=== PATIENT | female | born 1985 | race Caucasian/White ===

== ENCOUNTER 2017-12-10 11:53 | Outpatient (CLI) | payer SELFPAY ==
[2017-12-10 13:36] VITALS: BP 116/74; PULSE 96; RESP 16; TEMP 96.6
--- NOTE | 2017-12-31 11:41 | P.MSEPDOC ---
Presenting Problems - Arrival Data Date of Arrival on Unit: 12/10/17 Time of Arrival on Unit: 12:40 Mode of Transport: Ambulatory - Complaint OB-Reason for Admission/Chief Complaint: Pain Medical History - Information : 1 Para: 0 Term: 0 : 0 Abortions: Spontaneous or Elective: 0 Number of Living Children: 0 - Gestational Age Gestational Age by CORNELIUS (wks/days): 26 Weeks and 6 Days Review of Systems - Review of Systems Constitutional: No problems Breast: No problems ENT: No problems Cardiovascular: No problems Respiratory: No problems Gastrointestinal: Diarrhea Genitourinary: No problems Musculoskeletal: No problems Neurological: No problems Skin: No problems Vital Signs - Temperature Temperature: 96.6 F Temperature Source: Tympanic - Pulse Right Brachial Pulse Rate: 96 Pulse Assessment Method: Automatic Cuff - Respirations Respiratory Rate: 16 Oxygen Delivery Method: Room Air - Blood Pressure Right Arm Blood Pressure: 116/74 Blood Pressure Mean: 88 Blood Pressure Source: Automatic Cuff Medical Screen Scoring (Pre) - Cervical Exam Dilation: Exam Deferred Effacement: Exam Deferred Membranes: Intact - Uterine Contractions Frequency: N/A Duration: N/A Intensity: N/A - Maternal Vital Signs Maternal Temperature: N/A Maternal Blood Pressure: N/A Signs of Preeclampsia: N/A Maternal Respirations: N/A - Pain Assessment Pain Location and Character: Abdomen Pain Scale Used: Numeric (1 - 10) Pain Intensity: 5 Pain Management Goal: 2 Pain Description: *Acute, Cramping Pain Radiation Location: na Pain Frequency: Intermittent Pain Duration: 14 Pain Duration Units: Days Pain Behavior: Vocalization Pain Aggravating Factors: Anxiety Non-Pharmacological Interventions: Position/Reposition - Maternal Trauma Maternal Trauma: N/A - Assessment Baseline FHR: 125 Heart Rate - NICHD Category: Category I (Normal) = 0 Position: N/A Station: N/A - Total Score Total Score (Pre): 0 - Level of Risk Level of Risk: Low (0-5) Physician Notification (Pre) - Physician Notified Physician Notified Date: 12/10/17 Physician Notified Time: 12:40 Physician/Practitioner Notifed:: Dr. Lujan Spoke With: Dr. Lujan New Order Received: Yes - Notification Comment Comment: d/c home Disposition - Disposition OB Disposition: Discharge to home Discharge Date: 12/10/17 Discharge Time: 12:50 I agree with the RN Medical Screening Exam: No Risk & Benefit of care provided described in d/c instruction: No Diagnosis: 29 WEEKS GESTATION OF
== END 2017-12-10 12:50 | disposition home or self-care (01) ==
LOC: FBPOP 11:53
PROVIDERS: ATTEND Obstetrics & Gynecology
DX: O26.893 Other specified pregnancy related conditions, third trimester (principal); R10.9 Unspecified abdominal pain; Z3A.29 29 weeks gestation of pregnancy
CPT/HCPCS: 99213

== ENCOUNTER 2018-03-12 02:45 | Outpatient (CLI) | payer BC ==
[2018-03-12 03:56] VITALS: RESP 16
[2018-03-12] MEDS ORDERED: CARBOPROST TROMETHAMINE 250 MCG/ML 1 ML AMP IM PRN (08:50)
[2018-03-12] MEDS ORDERED: TERBUTALINE 1 MG/ML VIAL SQ PRN (08:50)
[2018-03-12] MEDS ORDERED: METHYLERGONOVINE 0.2 MG/ML 1 ML AMP IM PRN (08:50)
[2018-03-12] MEDS ORDERED: OXYTOCIN 10 UNIT/ML 1 ML VIAL IM PRN (08:50)
[2018-03-12] MEDS ORDERED: LIDOCAINE 0.5% (PF) 5 MG/ML (50 ML SDV) SQ PRN (08:50)
[2018-03-12] MEDS ORDERED: BUTORPHANOL 1 MG/ML 1 ML VIAL IV PRN (08:55)
[2018-03-12] MEDS ORDERED: LACTATED RINGERS 1,000 ML IV SCH ×2 (09:00)
[2018-03-12] MEDS ORDERED: OXYTOCIN 20 UNITS/1000 ML NS 1,000 ML IV SCH (09:00)
[2018-03-12 09:16] VITALS: BP 138/89; PULSE 64; TEMP 96.3; BMI 29.1
--- NOTE | 2018-04-02 18:27 | P.MSEPDOC ---
Presenting Problems - Arrival Data Date of Arrival on Unit: 03/12/18 Time of Arrival on Unit: 02:45 Mode of Transport: Wheelchair - Complaint OB-Reason for Admission/Chief Complaint: Rule Out SROM Medical History - Information : 1 Para: 0 Term: 0 : 0 Abortions: Spontaneous or Elective: 0 Number of Living Children: 0 - Gestational Age Gestational Age by CORNELIUS (wks/days): 40 Weeks and 0 Days Review of Systems - Review of Systems Constitutional: No problems Breast: No problems ENT: No problems Cardiovascular: No problems Respiratory: No problems Gastrointestinal: No problems Genitourinary: No problems Musculoskeletal: No problems Neurological: No problems Skin: No problems Vital Signs - Temperature Temperature: 96.3 F Temperature Source: Oral - Pulse Right Brachial Pulse Rate: 64 Pulse Assessment Method: Automatic Cuff - Respirations Respiratory Rate: 16 Oxygen Delivery Method: Room Air O2 Sat by Pulse Oximetry: 97 - Blood Pressure Right Arm Blood Pressure: 138/89 Blood Pressure Mean: 105 Blood Pressure Source: Automatic Cuff Medical Screen Scoring (Pre) - Cervical Exam Dilation: 1-3 cm = 1 Membranes: Intact - Uterine Contractions Frequency: > or = 36 weeks =2 Duration: N/A Intensity: N/A - Maternal Vital Signs Maternal Temperature: N/A Maternal Blood Pressure: N/A Signs of Preeclampsia: N/A Maternal Respirations: N/A - Pain Assessment Pain Location and Character: Lower, Back Pain Scale Used: Numeric (1 - 10) Pain Intensity: 3 Pain Description: *Acute, Cramping Pain Frequency: Intermittent Pain Duration Units: Minutes Pain Behavior: None Exhibited - Maternal Trauma Maternal Trauma: N/A - Assessment Baseline FHR: 125 Heart Rate - NICHD Category: Category I (Normal) = 0 NST: Reactive Position: N/A Station: N/A - Total Score Total Score (Pre): 3 - Level of Risk Level of Risk: Low (0-5) Physician Notification (Pre) - Physician Notified Physician Notified Date: 03/12/18 Physician Notified Time: 03:38 Physician/Practitioner Notifed:: Dr. Giles Spoke With: Dr. Giles New Order Received: Yes - Notification Comment Comment: Dr. Giles called and given report on pt in tr. Pt c/o. reactive nst. Two negative amnisures. Vs wnl. Orders recieved to d/c pt to home. Disposition - Disposition OB Disposition: Discharge to home Discharge Date: 03/12/18 Discharge Time: 03:50 I agree with the RN Medical Screening Exam: Yes Risk & Benefit of care provided described in d/c instruction: Yes Diagnosis: FALSE LABOR AT OR AFTER 37 COMPLETED WEEKS OF GESTATION
== END 2018-03-12 03:50 | disposition home or self-care (01) ==
LOC: FBPOP 02:45
PROVIDERS: ATTEND Obstetrics & Gynecology Obstetrics
DX: O47.1 False labor at or after 37 completed weeks of gestation (principal); Z3A.40 40 weeks gestation of pregnancy
CPT/HCPCS: 59025; 84112; 99213

== ENCOUNTER 2018-03-12 07:45 | Inpatient (IN) | payer BC ==
[2018-03-12] MEDS ORDERED: CARBOPROST TROMETHAMINE 250 MCG/ML 1 ML AMP IM PRN (08:54)
[2018-03-12] MEDS ORDERED: LIDOCAINE 0.5% (PF) 5 MG/ML (50 ML SDV) SQ PRN (08:55)
[2018-03-12] MEDS ORDERED: METHYLERGONOVINE 0.2 MG/ML 1 ML AMP IM PRN (08:55)
[2018-03-12] MEDS ORDERED: OXYTOCIN 10 UNIT/ML 1 ML VIAL IM PRN (08:55)
[2018-03-12] MEDS ORDERED: TERBUTALINE 1 MG/ML VIAL SQ PRN (08:56)
[2018-03-12] MEDS ORDERED: BUTORPHANOL 1 MG/ML 1 ML VIAL IV PRN (08:56)
[2018-03-12] MEDS ORDERED: LACTATED RINGERS 1,000 ML IV SCH ×3 (09:00→09:30)
[2018-03-12] MEDS ORDERED: OXYTOCIN 20 UNITS/1000 ML NS 1,000 ML IV SCH ×3 (09:00→12:00)
[2018-03-12] MEDS: LACTATED RINGERS 1,000 ML IV SCH ×2 (09:47→23:44)
[2018-03-12 09:56] LABS: Basophils % (A) 0 %; Eosinophils % (A) 0 %; HCT 33.9 % (34.0-46.0); Lymphocytes % (A) 6 %; MCH 27.7 pg (25.0-35.0); MCHC 32.4 g/dL (31.0-37.0); MCV 85.6 fL (80.0-100.0); Monocytes # (A) 0.5 k/uL (0-1.0); Monocytes % (A) 3 %; Neutrophils # (A) 14.2 k/uL (1.3-7.7); Neutrophils % (A) 90 %; Platelet Count 277 k/uL (150-450); RBC 3.97 m/uL (3.80-5.40); RDW 13.7 % (11.5-15.5); WBC 15.8 k/uL (3.8-10.6)
[2018-03-12] MEDS ORDERED: HYDROCORTISONE 2.5% RECTAL CREAM 30 GM TUBE RECTAL PRN (11:51)
[2018-03-12] MEDS ORDERED: ZOLPIDEM 5 MG TAB PO PRN (11:51)
[2018-03-12] MEDS ORDERED: SIMETHICONE 80 MG CHEWABLE PO PRN (11:51)
[2018-03-12] MEDS ORDERED: IBUPROFEN 600 MG TAB PO PRN (11:51)
[2018-03-12] MEDS ORDERED: diphenhydrAMINE 25 MG CAP PO PRN (11:51)
[2018-03-12] MEDS ORDERED: LANOLIN CREAM 5 GM TUBE TOPICAL PRN (11:51)
[2018-03-12] MEDS ORDERED: WITCH HAZEL 1 EACH MED..PAD TOPICAL PRN (11:51)
[2018-03-12] MEDS ORDERED: HYDROcodone/APAP 5-325MG 1 EACH TAB PO PRN (11:51)
[2018-03-12] MEDS ORDERED: BENZOCAINE/MENTHOL SPRAY 1 GM/SPRAY AEROSOL TOPICAL PRN (11:51)
[2018-03-12] MEDS ORDERED: diphenhydrAMINE 50 MG CAP PO PRN (11:51)
[2018-03-12] MEDS ORDERED: ACETAMINOPHEN TAB 325 MG TAB PO PRN (11:51)
[2018-03-12] MEDS ORDERED: diphenhydrAMINE 50 MG/ML 1 ML VIAL IVP PRN ×2 (11:51)
--- NOTE | 2018-03-12 11:55 | P.HPOB ---
History of Present Illness H&P Date: 03/12/18 Chief Complaint: IUP at 40-0/7 weeks, active labor This is a very pleasant 32-year-old 1 para 0 at 40-0/7 weeks with an estimated due date of 03 12. Patient presents with complaints of regular strong contractions. Patient was seen previously in the evening noted be 3 cm on presentation today she was 4 cm and completely thinned out. Patient denied loss of fluid, but did note vaginal bleeding with the contractions. Good movement is noted. Next On blood work showed a blood type of A+, rubella immune, hepatitis B surface antigen negative, HIV negative, GBS negative.. Patient has been receiving routine care with myself and is been followed closely for a circumvallate placenta. Review of Systems Constitutional: Reports fatigue, Denies chills, Denies fever Ears, nose, mouth and throat: Denies headache Cardiovascular: Reports leg edema Respiratory: Denies cough, Denies dyspnea Gastrointestinal: Denies constipation, Denies diarrhea, Denies nausea, Denies vomiting Genitourinary: Reports Past Medical History Past Medical History: No Reported History Additional Past Medical History / Comment(s): CURRENT: DIARRHEA History of Any Multi-Drug Resistant Organisms: None Reported Past Surgical History: No Surgical Hx Reported Past Anesthesia/Blood Transfusion Reactions: No Reported Reaction Additional Past Anesthesia/Blood Transfusion Reaction / Comment(s): HAS NEVER HAD ANESTHESIA Smoking Status: Never smoker Medications and Allergies Home Medications Medication Instructions Recorded Confirmed Type Pnv No.95/Ferrous Fum/Folic AC 1 each PO DAILY 12/10/17 03/12/18 History [ Multivitamin Tablet] Allergies Allergy/AdvReac Type Severity Reaction Status Date / Time No Known Allergies Allergy Verified 03/12/18 08:05 Exam Osteopathic Statement: *. No significant issues noted on an osteopathic structural exam other than those noted in the History and Physical/Consult. Vital Signs Temp 03/12/18 09:00 96.3 F L Intake and Output 03/11/18 03/12/18 03/12/18 22:59 06:59 14:59 Other: Weight 79.379 kg Targeted physical exam was preformed. In general patient is a well-developed well-nourished female, heart is noted to have regular rate and rhythm, lungs are clear to auscultation bilaterally, abdomen is noted to be gravid and appropriate for gestational age, heart tones were noted to be reactive with moderate variability, and patient was gordy every 5 minutes. - OBG Physical Exam Cervix: 5/100/-1 per rn on admission. Results Result Diagrams: 03/12/18 07:45 Abnormal Lab Results - Last 24 Hours (Table) 03/12/18 Range/Units 07:45 WBC 15.8 H (3.8-10.6) k/uL Hgb 11.0 L (11.4-16.0) gm/dL Hct 33.9 L (34.0-46.0) % Neutrophils # 14.2 H (1.3-7.7) k/uL Assessment and Plan (1) Term Current Visit: Yes Status: Acute Code(s): Z34.80 - ENCOUNTER FOR SUPRVSN OF NORMAL , UNSP TRIMESTER SNOMED Code(s): 18989010 (2) Circumvallate placenta Current Visit: Yes Status: Acute Code(s): O43.119 - CIRCUMVALLATE PLACENTA, UNSPECIFIED TRIMESTER SNOMED Code(s): 4704694 Plan: We'll admit to labor and delivery for expectant management, anticipate spontaneous vaginal delivery later this afternoon.
--- NOTE | 2018-03-12 11:57 | P.PROBDLV ---
Vaginal Delivery Note - . Vaginal Delivery Note: This is a very pleasant 32-year-old 1 para 0 at 40-0/7 weeks with an estimated date of 03 12. Patient presented to labor and delivery with complaints of regular strong contractions and cervical change. Patient was admitted to labor and delivery declines epidural at this time. Patient began pushing and had a normal spontaneous vaginal delivery of a viable male infant at 1132, occiput posterior presentation. was not weighed at the time of this note secondary to maternal bonding. Patient was noted have a circumvallate placenta. Placenta was delivered spontaneously intact with a three-vessel cord. Afterwards on inspection the patient's vaginal vault a second-degree midline laceration was noted this was repaired in the usual fashion with Vicryl Rapide. Hemostasis was appreciated once the laceration was repaired in section the patient's vaginal vault no further lacerations or bleeding was noted. Uterus was noted to be firm and below the umbilicus at this time. Estimated blood loss 300 mL, patient and infant tolerated delivery well and are resting comfortably.
[2018-03-12 16:39] VITALS: RESP 16
[2018-03-12] MEDS: SENNOSIDES-DOCUSATE SODIUM 1 EACH TAB PO SCH (19:41)
[2018-03-13] MEDS: SENNOSIDES-DOCUSATE SODIUM 1 EACH TAB PO SCH (08:06)
[2018-03-13 08:44] VITALS: BP 133/84; PULSE 94; TEMP 98
--- NOTE | 2018-03-13 12:57 | P.DS ---
Providers Date of admission: 03/12/18 08:24 Expected date of discharge: 03/13/18 Attending physician: Lyubov Giles Primary care physician: Stated None - Discharge Diagnosis(es) (1) Term Current Visit: Yes Status: Acute (2) Circumvallate placenta Current Visit: Yes Status: Acute (3) Status post vaginal delivery Current Visit: Yes Status: Acute Hospital Course: This is a very pleasant 32-year-old 1 para 0 that presented to labor and delivery on 03 12 in active labor. Patient states she was having contractions every 5 minutes painful in nature denied loss of fluid or vaginal bleeding at that time. Patient was admitted to labor and delivery she declined epidural progressed to complete and had a normal spontaneous vaginal delivery of a viable male infant in occiput posterior presentation at 1132, weight of 7 lbs. 11 oz., Apgars of 8 and 9 at one and 5 minutes respectively. Patient did sustain a second-degree midline vaginal laceration during delivery which was repaired in the usual fashion. Patient has done well . She is ambulating and voiding without difficulty. She is tolerating a regular diet without nausea or vomiting. She is bottle feeding. She denies any concerns and wishes to be discharged home on this day #1. Patient Condition at Discharge: Good Plan - Discharge Summary New Discharge Prescriptions: No Action Pnv No.95/Ferrous Fum/Folic AC [ Multivitamin Tablet] 1 each PO DAILY Discharge Medication List Pnv No.95/Ferrous Fum/Folic AC [ Multivitamin Tablet] 1 each PO DAILY [History] Follow up Appointment(s)/Referral(s): Lyubov Giles DO [Doctor of Osteopathic Medicine] - 1 Week Patient Instructions/Handouts: Vaginal Delivery (DC), Vaginal Delivery (GEN) Discharge Disposition: HOME SELF-CARE
== END 2018-03-13 15:40 | disposition home or self-care (01) | DRG 807 ==
LOC: FBPOP 07:45 → 4FBP 08:24
PROVIDERS: ADMIT Obstetrics & Gynecology Obstetrics; ATTEND Obstetrics & Gynecology Obstetrics
PROC: 10E0XZZ Delivery of Products of Conception, External Approach (ICD-10-PCS; principal; 2018-03-12)
PROC: 0KQM0ZZ Repair Perineum Muscle, Open Approach (ICD-10-PCS; principal; 2018-03-12)
PROC: 10907ZC Drainage of Amniotic Fluid, Therapeutic from Products of Conception, Via Natural or Artificial Opening (ICD-10-PCS; principal; 2018-03-12)
DX: O43.119 Circumvallate placenta, unspecified trimester (principal); Z37.0 Single live birth; Z3A.40 40 weeks gestation of pregnancy; O70.1 Second degree perineal laceration during delivery
CPT/HCPCS: 59025; 85025; 86850; 86900; 86901; 99213

== ENCOUNTER 2018-10-09 11:11 | Emergency (ER) | payer BC, OTHER ==
--- NOTE | 2018-10-09 12:34 | ED ---
GI Bleed HPI - General Chief complaint: GI Bleed Stated complaint: rectal bleeding Time Seen by Provider: 10/09/18 11:20 Source: patient, RN notes reviewed Mode of arrival: ambulatory Limitations: no limitations - History of Present Illness Initial comments: This is a 33-year-old female history of ulcerative colitis who has intermittent episodes of bleeding who is been evaluated by GI for this who was sent in by her doctor today for a blood transfusion. She's been having intermittent bleeding for quite a while she's had symptoms of lightheadedness dizziness had palpitations last week no overt chest pain no overt shortness of breath. She has been told she was deficient iron also. No other symptoms at this time she states she was here for transfusion only for any other treatment. She denies any bleeding today she states that her current episode of bleeding is normal for this condition for her. - Related Data Home Medications Medication Instructions Recorded Confirmed predniSONE 50 mg PO DAILY 10/09/18 10/09/18 sulfaSALAzine [Azulfidine] 1,000 mg PO TID 10/09/18 10/09/18 Allergies Allergy/AdvReac Type Severity Reaction Status Date / Time No Known Allergies Allergy Verified 10/09/18 11:34 Review of Systems ROS Statement: Those systems with pertinent positive or pertinent negative responses have been documented in the HPI. ROS Other: All systems not noted in ROS Statement are negative. Past Medical History Past Medical History: No Reported History Additional Past Medical History / Comment(s): CURRENT: DIARRHEA- [facility] History of Any Multi-Drug Resistant Organisms: None Reported Past Surgical History: No Surgical Hx Reported Past Anesthesia/Blood Transfusion Reactions: No Reported Reaction Additional Past Anesthesia/Blood Transfusion Reaction / Comment(s): HAS NEVER HAD ANESTHESIA Past Psychological History: No Psychological Hx Reported Smoking Status: Never smoker Past Alcohol Use History: Rare Past Drug Use History: None Reported General Exam - General Exam Comments Initial Comments: This is a well-developed well-nourished awake alert oriented 3 female Limitations: no limitations General appearance: alert, in no apparent distress Head exam: Present: atraumatic, normocephalic, normal inspection Eye exam: Present: normal appearance, PERRL, EOMI, other (Pale conjunctiva). Absent: scleral icterus, conjunctival injection, periorbital swelling ENT exam: Present: normal exam, mucous membranes moist Neck exam: Present: normal inspection. Absent: tenderness, meningismus, lymphadenopathy Respiratory exam: Present: normal lung sounds bilaterally. Absent: respiratory distress, wheezes, rales, rhonchi, stridor Cardiovascular Exam: Present: regular rate, normal rhythm, normal heart sounds. Absent: systolic murmur, diastolic murmur, rubs, gallop, clicks GI/Abdominal exam: Present: soft, normal bowel sounds. Absent: distended, tenderness, guarding, rebound, rigid, bruit Rectal exam: Present: deferred Extremities exam: Present: normal inspection, full ROM, normal capillary refill. Absent: tenderness, pedal edema, joint swelling, calf tenderness Back exam: Present: normal inspection Neurological exam: Present: alert, oriented X3, CN II-XII intact Psychiatric exam: Present: normal affect, normal mood Skin exam: Present: warm, dry, intact, pallor. Absent: rash Course Vital Signs 10/09/18 10/09/18 10/09/18 11:12 13:22 13:26 Temperature 98.7 F 99.4 F 98.8 F Pulse Rate 99 89 89 Respiratory 18 16 16 Rate Blood Pressure 162/82 115/74 112/80 O2 Sat by Pulse 98 98 Oximetry 10/09/18 10/09/18 10/09/18 13:36 14:06 14:48 Temperature 98.4 F 98 F 98.2 F Pulse Rate 85 85 82 Respiratory 18 18 18 Rate Blood Pressure 110/80 115/87 109/78 O2 Sat by Pulse 99 99 98 Oximetry 10/09/18 10/09/18 10/09/18 15:12 15:21 15:29 Temperature 98.6 F 98 F 98.6 F Pulse Rate 82 78 82 Respiratory 18 18 16 Rate Blood Pressure 113/75 115/87 116/78 O2 Sat by Pulse 98 98 Oximetry 10/09/18 10/09/18 10/09/18 15:31 15:32 16:01 Temperature 98 F 98.0 F 98.0 F Pulse Rate 78 75 84 Respiratory 18 16 18 Rate Blood Pressure 118/78 118/78 112/68 O2 Sat by Pulse 98 100 Oximetry - Reevaluation(s) Reevaluation #1: 10/09/18 14:40 I did reevaluate the patient patient is feeling somewhat better. The patient is currently getting her first unit of blood. I did discuss the magnesium level which is at the low end of normal. She will be getting [id number] supplements for this. Reevaluation #2: 10/09/18 14:40 Also of note the patient was offered admission for transfusion she does not want to be admitted this will be performed in the emergency department she'll be discharged afterwards. Medical Decision Making - Medical Decision Making Patient received 2 units of blood welling she department she was offered initially admission she did not want be admitted. Patient is feeling much improved after the second unit discharge will follow-up with her doctor if she has planned. - Lab Data Result diagrams: 10/09/18 11:40 10/09/18 11:40 Lab Results 10/09/18 10/09/18 10/09/18 Range/Units 11:40 11:40 11:40 WBC 11.9 H (3.8-10.6) k/uL RBC 3.09 L (3.80-5.40) m/uL Hgb 6.4 L* (11.4-16.0) gm/dL Hct 22.5 L (34.0-46.0) % MCV 72.9 L (80.0-100.0) fL MCH 20.7 L (25.0-35.0) pg MCHC 28.4 L (31.0-37.0) g/dL RDW 17.9 H (11.5-15.5) % Plt Count 755 H (150-450) k/uL Neutrophils % 64 % Lymphocytes % 18 % Monocytes % 7 % Eosinophils % 8 % Basophils % 1 % Neutrophils # 7.6 (1.3-7.7) k/uL Lymphocytes # 2.2 (1.0-4.8) k/uL Monocytes # 0.8 (0-1.0) k/uL Eosinophils # 0.9 H (0-0.7) k/uL Basophils # 0.1 (0-0.2) k/uL Hypochromasia Marked Anisocytosis Slight Microcytosis Moderate Sodium 139 (137-145) mmol/L Potassium 4.0 (3.5-5.1) mmol/L Chloride 107 (98-107) mmol/L Carbon Dioxide 25 (22-30) mmol/L Anion Gap 7 mmol/L BUN 13 (7-17) mg/dL Creatinine 0.51 L (0.52-1.04) mg/dL Est GFR (CKD-EPI)AfAm >90 (>60 ml/min/1.73 sqM) Est GFR (CKD-EPI)NonAf >90 (>60 ml/min/1.73 sqM) Glucose 78 (74-99) mg/dL Calcium 8.5 (8.4-10.2) mg/dL Magnesium 1.7 (1.6-2.3) mg/dL Total Bilirubin 0.2 (0.2-1.3) mg/dL AST 18 (14-36) U/L ALT 11 (9-52) U/L Alkaline Phosphatase 80 (38-126) U/L Total Creatine Kinase 28 L (30-135) U/L CK-MB (CK-2) <0.2 (0.0-2.4) ng/mL CK-MB (CK-2) Rel Index Troponin I <0.012 (0.000-0.034) ng/mL Total Protein 6.5 (6.3-8.2) g/dL Albumin 3.4 L (3.5-5.0) g/dL Triglycerides 112 (<150) mg/dL Cholesterol 133 (<200) mg/dL LDL Cholesterol, Calc 66 (0-99) mg/dL HDL Cholesterol 45 (40-60) mg/dL TSH 1.110 (0.465-4.680) mIU/L Blood Type Blood Type Recheck Antibody Screen Crossmatch Spec Expiration Date 10/09/18 Range/Units 11:40 WBC (3.8-10.6) k/uL RBC (3.80-5.40) m/uL Hgb (11.4-16.0) gm/dL Hct (34.0-46.0) % MCV (80.0-100.0) fL MCH (25.0-35.0) pg MCHC (31.0-37.0) g/dL RDW (11.5-15.5) % Plt Count (150-450) k/uL Neutrophils % % Lymphocytes % % Monocytes % % Eosinophils % % Basophils % % Neutrophils # (1.3-7.7) k/uL Lymphocytes # (1.0-4.8) k/uL Monocytes # (0-1.0) k/uL Eosinophils # (0-0.7) k/uL Basophils # (0-0.2) k/uL Hypochromasia Anisocytosis Microcytosis Sodium (137-145) mmol/L Potassium (3.5-5.1) mmol/L Chloride (98-107) mmol/L Carbon Dioxide (22-30) mmol/L Anion Gap mmol/L BUN (7-17) mg/dL Creatinine (0.52-1.04) mg/dL Est GFR (CKD-EPI)AfAm (>60 ml/min/1.73 sqM) Est GFR (CKD-EPI)NonAf (>60 ml/min/1.73 sqM) Glucose (74-99) mg/dL Calcium (8.4-10.2) mg/dL Magnesium (1.6-2.3) mg/dL Total Bilirubin (0.2-1.3) mg/dL AST (14-36) U/L ALT (9-52) U/L Alkaline Phosphatase (38-126) U/L Total Creatine Kinase (30-135) U/L CK-MB (CK-2) (0.0-2.4) ng/mL CK-MB (CK-2) Rel Index Troponin I (0.000-0.034) ng/mL Total Protein (6.3-8.2) g/dL Albumin (3.5-5.0) g/dL Triglycerides (<150) mg/dL Cholesterol (<200) mg/dL LDL Cholesterol, Calc (0-99) mg/dL HDL Cholesterol (40-60) mg/dL TSH (0.465-4.680) mIU/L Blood Type A Positive Blood Type Recheck No Antibody Screen NEGATIVE Crossmatch See Detail Spec Expiration Date 10/12/2018 - 2340 - EKG Data -: EKG Interpreted by [facility] EKG shows normal: sinus rhythm (Normal sinus rhythm of 86. Interval 162 QRS duration 96 QT since QTC 370/[address]-T wave changes.) Disposition Clinical Impression: Symptomatic anemia, Ulcerative colitis with rectal bleeding Disposition: HOME SELF-CARE Condition: Good Instructions (If sedation given, give patient instructions): Gastrointestinal Bleeding (ED), Anemia (ED), Ulcerative Colitis (ED) Is patient prescribed a controlled substance at d/c from ED?: No Referrals: Simeon Gardner MD [Primary Care Provider] - 1-2 days
[2018-10-09 12:36] LABS: ALT 11 U/L (9-52); AST 18 U/L (14-36); Albumin 3.4 g/dL (3.5-5.0); Alkaline Phosphatase 80 U/L (38-126); Anion Gap 7 mmol/L; Blood Urea Nitrogen 13 mg/dL (7-17); Calcium 8.5 mg/dL (8.4-10.2); Carbon Dioxide 25 mmol/L (22-30); Chloride 107 mmol/L (98-107); Cholesterol 133 mg/dL (<200); Glucose 78 mg/dL (74-99); HDL Cholesterol 45 mg/dL (40-60); LDL Cholesterol,Calculated 66 mg/dL (0-99); Magnesium 1.7 mg/dL (1.6-2.3); Sodium 139 mmol/L (137-145); Total Bilirubin 0.2 mg/dL (0.2-1.3); Total Protein 6.5 g/dL (6.3-8.2); Triglycerides 112 mg/dL (<150)
[2018-10-09 12:46] LABS: Anisocytosis Slight; Basophils # (A) 0.1 k/uL (0-0.2); Basophils % (A) 1 %; Eosinophils # (A) 0.9 k/uL (0-0.7); Eosinophils % (A) 8 %; HCT 22.5 % (34.0-46.0); Hypochromasia Marked; Lymphocytes # (A) 2.2 k/uL (1.0-4.8); Lymphocytes % (A) 18 %; MCH 20.7 pg (25.0-35.0); MCHC 28.4 g/dL (31.0-37.0); MCV 72.9 fL (80.0-100.0); Mean Platelet Volume 6.5; Microcytosis Moderate; Monocytes # (A) 0.8 k/uL (0-1.0); Monocytes % (A) 7 %; Neutrophils # (A) 7.6 k/uL (1.3-7.7); Neutrophils % (A) 64 %; Platelet Count 755 k/uL (150-450); RBC 3.09 m/uL (3.80-5.40); RDW 17.9 % (11.5-15.5); WBC 11.9 k/uL (3.8-10.6)
[2018-10-09 12:47] LABS: Creatine Kinase 28 U/L (30-135)
[2018-10-09 12:50] LABS: HGB 6.4 gm/dL (11.4-16.0)
[2018-10-09 12:59] LABS: Creatine Kinase MB <0.2 ng/mL (0.0-2.4); Troponin I <0.012 ng/mL (0.000-0.034)
[2018-10-09 16:04] VITALS: RESP 18
[2018-10-09 17:06] VITALS: BP 116/86; PULSE 82; TEMP 98.2
== END 2018-10-09 17:19 | disposition home or self-care (01) ==
LOC: EC 11:11
DX: K51.911 Ulcerative colitis, unspecified with rectal bleeding (principal); D64.9 Anemia, unspecified; Z79.52 Long term (current) use of systemic steroids; Z79.899 Other long term (current) drug therapy
CPT/HCPCS: 36415; 93005; 86900; 86901; 80061; 80053; 84443; 82550; 82553; 83735; 84484; 85025; 86850; 86920; 99283; P9016

== ENCOUNTER 2018-10-17 10:46 | Inpatient (IN) | payer BC, OTHER ==
[2018-10-17] MEDS ORDERED: SODIUM CHLORIDE 0.9% 500 ML 500 ML IV STA (11:50)
[2018-10-17] MEDS ORDERED: PANTOPRAZOLE 40 MG/10 ML VIAL IVP STA (11:50)
--- NOTE | 2018-10-17 12:03 | ED ---
General Adult HPI - General Chief complaint: GI Bleed Stated complaint: Rectal bleeding, SOB heart palpations Time Seen by Provider: 10/17/18 11:00 Source: patient, RN notes reviewed Mode of arrival: ambulatory Limitations: no limitations - History of Present Illness Initial comments: This a 33-year-old female presents emergency department stating she has a history of ulcerative colitis and it has been bothering her for the last 4 months or so. Patient states she's had constant diarrhea abdominal cramping and blood in her stools. Patient states she recently received 2 units of packed red blood cells which brought her hemoglobin from 6.5 up to 7.5. Patient states she has lightheaded and feels weak lately so she believes her hemoglobin. Once a gain. Patient states she's on 60 mg of prednisone daily. Patient denies any chest pain shortness of breath or difficulty breathing. Patient is a palpitations. Patient denies headache patient denies numbness weakness. Patient denies any recent cough. Patient denies any dysuria hematuria urinary frequency or any vaginal bleeding. - Related Data Home Medications Medication Instructions Recorded Confirmed predniSONE 50 mg PO DAILY 10/09/18 10/09/18 sulfaSALAzine [Azulfidine] 1,000 mg PO TID 10/09/18 10/09/18 Allergies Allergy/AdvReac Type Severity Reaction Status Date / Time No Known Allergies Allergy Verified 10/17/18 10:58 Review of Systems ROS Statement: Those systems with pertinent positive or pertinent negative responses have been documented in the HPI. ROS Other: All systems not noted in ROS Statement are negative. Past Medical History Past Medical History: No Reported History Additional Past Medical History / Comment(s): CURRENT: DI[facility]HEA- [facility] History of Any Multi-Drug Resistant Organisms: None Reported Past Surgical History: No Surgical Hx Reported Past Anesthesia/Blood Transfusion Reactions: No Reported Reaction Additional Past Anesthesia/Blood Transfusion Reaction / Comment(s): HAS NEVER HAD ANESTHESIA Past Psychological History: No Psychological Hx Reported Smoking Status: Never smoker Past Alcohol Use History: Rare Past Drug Use History: None Reported General Exam - General Exam Comments Initial Comments: GENERAL: Patient is well-developed and well-nourished. Patient is nontoxic and well- hydrated and is in mild distress. ENT: Neck is soft and supple. No significant lymphadenopathy is noted. Oropharynx is clear. Moist mucous membranes. Neck has full range of motion without e liciting any pain. EYES: The sclera were anicteric and conjunctiva were pink and moist. Extraocular movements were intact and pupils were equal round and reactive to light. Eyelids were unremarkable. PULMONARY: Unlabored respirations. Good breath sounds bilaterally. No audible rales rhonchi or wheezing was noted. CARDIOVASCULAR: There is a regular rate and rhythm without any murmurs gallops or rubs. ABDOMEN: Soft and nontender with normal bowel sounds. SKIN: Skin is clear with no lesions or rashes and otherwise unremarkable. NEUROLOGIC: Patient is alert and oriented x3. Cranial nerves II through XII are grossly intact. Motor and sensory are also intact. Normal speech, volume and content. Symmetrical smile. MUSCULOSKELETAL: Normal extremities with adequate strength and full range of motion. LYMPHATICS: No significant lymphadenopathy is noted PSYCHIATRIC: Normal psychiatric evaluation. Limitations: no limitations Course Vital Signs 10/17/18 10/17/18 10:55 12:00 Temperature 98.4 F Pulse Rate 101 H 92 Respiratory 18 18 Rate Blood Pressure 126/85 142/96 O2 Sat by Pulse 99 98 Oximetry Medical Decision Making - Medical Decision Making I spoke with sheet agreed to admit the patient admitted the patient I wrote admitting orders. - Lab Data Result diagrams: 10/17/18 11:40 10/17/18 11:40 Lab Results 10/17/18 10/17/18 10/17/18 Range/Units 11:40 11:40 11:40 WBC 18.5 H (3.8-10.6) k/uL RBC 3.57 L (3.80-5.40) m/uL Hgb 7.9 L D (11.4-16.0) gm/dL Hct 26.7 L (34.0-46.0) % MCV 74.8 L (80.0-100.0) fL MCH 22.0 L (25.0-35.0) pg MCHC 29.5 L (31.0-37.0) g/dL RDW 20.4 H (11.5-15.5) % Plt Count 828 H (150-450) k/uL Neutrophils % 79 % Lymphocytes % 11 % Monocytes % 4 % Eosinophils % 4 % Basophils % 1 % Neutrophils # 14.7 H (1.3-7.7) k/uL Lymphocytes # 2.0 (1.0-4.8) k/uL Monocytes # 0.8 (0-1.0) k/uL Eosinophils # 0.7 (0-0.7) k/uL Basophils # 0.1 (0-0.2) k/uL Hypochromasia Marked Poikilocytosis Slight Anisocytosis Moderate Microcytosis Moderate PT 10.5 (9.0-12.0) sec INR 1.0 (<1.2) APTT 23.9 (22.0-30.0) sec Sodium 139 (137-145) mmol/L Potassium 3.5 (3.5-5.1) mmol/L Chloride 102 (98-107) mmol/L Carbon Dioxide 26 (22-30) mmol/L Anion Gap 11 mmol/L BUN 10 (7-17) mg/dL Creatinine 0.55 (0.52-1.04) mg/dL Est GFR (CKD-EPI)AfAm >90 (>60 ml/min/1.73 sqM) Est GFR (CKD-EPI)NonAf >90 (>60 ml/min/1.73 sqM) Glucose 94 (74-99) mg/dL Calcium 8.5 (8.4-10.2) mg/dL Total Bilirubin 0.3 (0.2-1.3) mg/dL AST 19 (14-36) U/L ALT <6 L (9-52) U/L Alkaline Phosphatase 58 (38-126) U/L Total Protein 6.0 L (6.3-8.2) g/dL Albumin 3.1 L (3.5-5.0) g/dL Blood Type Blood Type Recheck Antibody Screen Spec Expiration Date 10/17/18 Range/Units 11:40 WBC (3.8-10.6) k/uL RBC (3.80-5.40) m/uL Hgb (11.4-16.0) gm/dL Hct (34.0-46.0) % MCV (80.0-100.0) fL MCH (25.0-35.0) pg MCHC (31.0-37.0) g/dL RDW (11.5-15.5) % Plt Count (150-450) k/uL Neutrophils % % Lymphocytes % % Monocytes % % Eosinophils % % Basophils % % Neutrophils # (1.3-7.7) k/uL Lymphocytes # (1.0-4.8) k/uL Monocytes # (0-1.0) k/uL Eosinophils # (0-0.7) k/uL Basophils # (0-0.2) k/uL Hypochromasia Poikilocytosis Anisocytosis Microcytosis PT (9.0-12.0) sec INR (<1.2) APTT (22.0-30.0) sec Sodium (137-145) mmol/L Potassium (3.5-5.1) mmol/L Chloride (98-107) mmol/L Carbon Dioxide (22-30) mmol/L Anion Gap mmol/L BUN (7-17) mg/dL Creatinine (0.52-1.04) mg/dL Est GFR (CKD-EPI)AfAm (>60 ml/min/1.73 sqM) Est GFR (CKD-EPI)NonAf (>60 ml/min/1.73 sqM) Glucose (74-99) mg/dL Calcium (8.4-10.2) mg/dL Total Bilirubin (0.2-1.3) mg/dL AST (14-36) U/L ALT (9-52) U/L Alkaline Phosphatase (38-126) U/L Total Protein (6.3-8.2) g/dL Albumin (3.5-5.0) g/dL Blood Type A Positive Blood Type Recheck No Antibody Screen NEGATIVE Spec Expiration Date 10/20/2018 - 234 Disposition Clinical Impression: Ulcerative colitis, GI bleed, Abdominal pain, Lightheadedness Disposition: ADMITTED IP TO THIS [facility] Referrals: None,Stated [Primary Care Provider] - 1-2 days Time of Disposition: 13:11
[2018-10-17 12:04] LABS: Anisocytosis Moderate; Basophils # (A) 0.1 k/uL (0-0.2); Basophils % (A) 1 %; Eosinophils # (A) 0.7 k/uL (0-0.7); Eosinophils % (A) 4 %; HCT 26.7 % (34.0-46.0); Hypochromasia Marked; Lymphocytes % (A) 11 %; MCHC 29.5 g/dL (31.0-37.0); MCV 74.8 fL (80.0-100.0); Mean Platelet Volume 6.5; Microcytosis Moderate; Monocytes # (A) 0.8 k/uL (0-1.0); Monocytes % (A) 4 %; Neutrophils # (A) 14.7 k/uL (1.3-7.7); Neutrophils % (A) 79 %; Platelet Count 828 k/uL (150-450); Poikilocytosis Slight; RBC 3.57 m/uL (3.80-5.40); RDW 20.4 % (11.5-15.5); WBC 18.5 k/uL (3.8-10.6)
[2018-10-17 12:09] LABS: Partial Thromboplastin Time 23.9 sec (22.0-30.0); Prothrombin Time 10.5 sec (9.0-12.0)
[2018-10-17 12:11] LABS: ALT <6 U/L (9-52); AST 19 U/L (14-36); African American GFR (CKD) >90 (>60 ml/min/1.73 sqM); Albumin 3.1 g/dL (3.5-5.0); Alkaline Phosphatase 58 U/L (38-126); Anion Gap 11 mmol/L; Blood Urea Nitrogen 10 mg/dL (7-17); Calcium 8.5 mg/dL (8.4-10.2); Carbon Dioxide 26 mmol/L (22-30); Chloride 102 mmol/L (98-107); Glucose 94 mg/dL (74-99); Potassium 3.5 mmol/L (3.5-5.1); Sodium 139 mmol/L (137-145); Total Bilirubin 0.3 mg/dL (0.2-1.3)
[2018-10-17 12:13] LABS: HGB 7.9 gm/dL (11.4-16.0)
[2018-10-17] MEDS ORDERED: SODIUM CHLORIDE 0.9% 1,000 ML IV ONE (13:11)
[2018-10-17 15:01] VITALS: BMI 23.4
[2018-10-17] MEDS ORDERED: traMADol 50 MG TAB PO PRN (16:39)
[2018-10-17] MEDS ORDERED: ACETAMINOPHEN TAB 500 MG TAB PO PRN (16:39)
--- NOTE | 2018-10-17 17:50 | P.HPIM ---
History of Present Illness 33-year-old pleasant female came in with compensative for diffuse lower abdominal pain crampy pain which is consistent with his or ulcerative colitis pain with the multiple bowel movements she says around to 20 stools per day loose stools with the blood on and off. Patient's hemoglobin is fairly stable compared to 2 weeks ago when she presented with low hemoglobin of 6.5 received 2 units of blood PRBC transfusion and hemoglobin has gone up to 7.5 now around 7.9. It can be some hemoconcentration effect as well. Patient is on 50 mg of prednisone on daily basis. Patient denied any fever chills patient and dysuria. Patient has elevated white blood cell count secondary to systemic steroids or ulcerative colitis exacerbation itself. Gastroenterology was consulted Review of Systems REVIEW OF SYSTEMS: CONSTITUTIONAL: No fever, no malaise, no fatigue. HEENT: No recent visual problems or hearing problems. Denied any sore throat. CARDIOVASCULAR: No chest pain, orthopnea, PND, no palpitations, no syncope. PULMONARY: No shortness of breath, no cough, no hemoptysis. GASTROINTESTINAL: As mentioned in HPI NEUROLOGICAL: No headaches, no weakness, no numbness. HEMATOLOGICAL: Denies any bleeding or petechiae. GENITOURINARY: Denies any burning micturition, frequency, or urgency. MUSCULOSKELETAL/RHEUMATOLOGICAL: Denies any joint pain, swelling, or any muscle pain. ENDOCRINE: Denies any polyuria or polydipsia. The rest of the 14-point review of systems is negative. Past Medical History Past Medical History: No Reported History Additional Past Medical History / Comment(s): CURRENT: DIARRHEA- [facility] History of Any Multi-Drug Resistant Organisms: None Reported Past Surgical History: No Surgical Hx Reported Past Anesthesia/Blood Transfusion Reactions: No Reported Reaction Additional Past Anesthesia/Blood Transfusion Reaction / Comment(s): HAS NEVER HAD ANESTHESIA Past Psychological History: No Psychological Hx Reported Smoking Status: Never smoker Past Alcohol Use History: Rare Past Drug Use History: None Reported Medications and Allergies Home Medications Medication Instructions Recorded Confirmed Type predniSONE 50 mg PO DAILY 10/09/18 10/17/18 History sulfaSALAzine [Azulfidine] 1,000 mg PO TID 10/09/18 10/17/18 History Ferrous Sulfate [Feosol] 325 mg PO DAILY 10/17/18 10/17/18 History Allergies Allergy/AdvReac Type Severity Reaction Status Date / Time No Known Allergies Allergy Verified 10/17/18 13:37 Physical Exam Vitals: Vital Signs Temp Pulse Pulse Resp BP BP Pulse Ox 10/17/18 15:03 99.4 F 89 16 127/83 97 10/17/18 14:00 97.9 F 88 18 135/95 99 10/17/18 13:00 89 18 137/90 100 10/17/18 12:00 92 18 142/96 98 10/17/18 10:55 98.4 F 101 H 18 126/85 99 Intake and Output 10/17/18 10/17/18 10/17/18 06:59 14:59 22:59 Other: Weight 63.503 kg PHYSICAL EXAMINATION: GENERAL: The patient is alert and oriented x3, not in any acute distress. Well developed, well nourished. HEENT: Pupils are round and equally reacting to light. EOMI. No scleral icterus. No conjunctival pallor. Normocephalic, atraumatic. No pharyngeal erythema. No thyromegaly. CARDIOVASCULAR: S1 and S2 present. No murmurs, rubs, or gallops. PULMONARY: Chest is clear to auscultation, no wheezing or crackles. ABDOMEN: Soft, nontender, nondistended, normoactive bowel sounds. No palpable organomegaly. MUSCULOSKELETAL: No joint swelling or deformity. EXTREMITIES: No cyanosis, clubbing, or pedal edema. NEUROLOGICAL: Gross neurological examination did not reveal any focal deficits. SKIN: No rashes. Results CBC & Chem 7: 10/17/18 11:40 10/17/18 11:40 Labs: Abnormal Lab Results - Last 24 Hours (Table) 10/17/18 10/17/18 Range/Units 11:40 11:40 WBC 18.5 H (3.8-10.6) k/uL RBC 3.57 L (3.80-5.40) m/uL Hgb 7.9 L D (11.4-16.0) gm/dL Hct 26.7 L (34.0-46.0) % MCV 74.8 L (80.0-100.0) fL MCH 22.0 L (25.0-35.0) pg MCHC 29.5 L (31.0-37.0) g/dL RDW 20.4 H (11.5-15.5) % Plt Count 828 H (150-450) k/uL Neutrophils # 14.7 H (1.3-7.7) k/uL ALT <6 L (9-52) U/L Total Protein 6.0 L (6.3-8.2) g/dL Albumin 3.1 L (3.5-5.0) g/dL Thrombosis Risk Factor Assmnt - Choose All That Apply Any of the Below Risk Factors Present?: No Other Risk Factors: No Other congenital or acquired thrombophilia - If yes, enter type in comment: No Thrombosis Risk Factor Assessment Level: Very Low Risk Assessment and Plan Plan: -Possible ulcerative colitis exacerbation: Patient will be started on systemic steroids, 40 mg IV twice a day of Solu-Medrol. Gastroneurology was consulted patient probably will benefit from oral Budosenide and biologic agents as an outpatient. -Possible lower GI bleed secondary to ulcerative colitis -leukocytosis secondary to ulcerative colitis -Reactive thrombocytosis secondary to anemia -She will need for ALLERGIC GI prophylaxis due to prophylaxis early ambulation
[2018-10-17 18:22] LABS: Anisocytosis Moderate; Basophils # (A) 0.1 k/uL (0-0.2); Basophils % (A) 1 %; Eosinophils # (A) 1.1 k/uL (0-0.7); Eosinophils % (A) 8 %; HCT 24.5 % (34.0-46.0); HGB 7.2 gm/dL (11.4-16.0); Hypochromasia Marked; Lymphocytes # (A) 2.2 k/uL (1.0-4.8); Lymphocytes % (A) 17 %; MCH 22.4 pg (25.0-35.0); MCHC 29.4 g/dL (31.0-37.0); Mean Platelet Volume 6.2; Microcytosis Moderate; Monocytes # (A) 0.8 k/uL (0-1.0); Monocytes % (A) 6 %; Neutrophils # (A) 8.6 k/uL (1.3-7.7); Neutrophils % (A) 66 %; Platelet Count 692 k/uL (150-450); Poikilocytosis Slight; RBC 3.22 m/uL (3.80-5.40); RDW 20.6 % (11.5-15.5); WBC 13.2 k/uL (3.8-10.6)
[2018-10-17] MEDS: methylPREDNISolone SOD SUCCI 40 MG/ML 1 ML VIAL IV SCH (20:07)
[2018-10-18 00:56] LABS: Anisocytosis Moderate; Basophils % (A) 0 %; Eosinophils # (A) 0.1 k/uL (0-0.7); Eosinophils % (A) 1 %; HGB 7.4 gm/dL (11.4-16.0); Hypochromasia Marked; Lymphocytes # (A) 0.7 k/uL (1.0-4.8); Lymphocytes % (A) 7 %; MCH 21.5 pg (25.0-35.0); MCHC 28.4 g/dL (31.0-37.0); MCV 75.8 fL (80.0-100.0); Mean Platelet Volume 6.2; Microcytosis Moderate; Monocytes # (A) 0.1 k/uL (0-1.0); Monocytes % (A) 1 %; Neutrophils # (A) 9.2 k/uL (1.3-7.7); Neutrophils % (A) 90 %; Platelet Count 729 k/uL (150-450); Poikilocytosis Slight; RBC 3.43 m/uL (3.80-5.40); RDW 20.7 % (11.5-15.5); WBC 10.3 k/uL (3.8-10.6)
[2018-10-18] MEDS: methylPREDNISolone SOD SUCCI 40 MG/ML 1 ML VIAL IV SCH (08:01)
[2018-10-18 09:46] LABS: African American GFR (CKD) >90 (>60 ml/min/1.73 sqM); Anion Gap 5 mmol/L; Blood Urea Nitrogen 8 mg/dL (7-17); Calcium 8.2 mg/dL (8.4-10.2); Carbon Dioxide 26 mmol/L (22-30); Chloride 105 mmol/L (98-107); Glucose 131 mg/dL (74-99); Potassium 4.1 mmol/L (3.5-5.1); Sodium 136 mmol/L (137-145)
[2018-10-18 10:55] LABS: Anisocytosis Slight; Basophils # (A) 0.1 k/uL (0-0.2); Basophils % (A) 0 %; Eosinophils # (A) 0.1 k/uL (0-0.7); Eosinophils % (A) 0 %; HCT 25.3 % (34.0-46.0); HGB 7.4 gm/dL (11.4-16.0); Hypochromasia Marked; Lymphocytes # (A) 1.4 k/uL (1.0-4.8); Lymphocytes % (A) 8 %; MCH 22.8 pg (25.0-35.0); MCHC 29.2 g/dL (31.0-37.0); MCV 78.4 fL (80.0-100.0); Mean Platelet Volume 6.9; Microcytosis Slight; Monocytes % (A) 6 %; Neutrophils # (A) 14.4 k/uL (1.3-7.7); Neutrophils % (A) 84 %; Platelet Count 740 k/uL (150-450); Poikilocytosis Slight; RBC 3.23 m/uL (3.80-5.40); RDW 19.3 % (11.5-15.5); WBC 17.2 k/uL (3.8-10.6)
[2018-10-18] MEDS ORDERED: SODIUM CHLORIDE 0.9% 1,000 ML IV SCH (11:30)
[2018-10-18 12:30] VITALS: BP 123/82; PULSE 81; RESP 16; TEMP 98.6
--- NOTE | 2018-10-18 13:07 | P.CONS ---
History of Present Illness - Reason for Consult Consult date: 10/18/18 Rectal bleeding ulcerative colitis Requesting physician: Aria Pratt - Chief Complaint Rectal bleeding - History of Present Illness 33-year-old female patient Dr. Sutherland with a past medical history of ulcerative colitis diagnosed about 5 years ago presents with persistent rectal bleeding 3 months duration and improved with oral steroids and Azulfidine. Patient states she underwent recent colonoscopy screening [address] Sutherland unsure if her biopsies were consistent with active colitis. She has been maintained on Azulfidine 1 g 4 times a day and has been on prednisone therapy since July. Prior to admission she was taking 60 mg of prednisone daily. She isn't passing multiple blood tinged bowel movements on a daily basis without fever chills weight loss abdominal pain or hematemesis coffee-ground emesis. She received 2 units of blood a week ago on October 09 for hemoglobin of 6.4. No history of previous transfusions. She's been taking iron supplementation at home. Admission hemoglobin 7.9 decreased to 7.2 presently 7.4. Receiving IV steroids with some improvement in rectal bleeding. INR 1.0. [facility] 10. Creatinine 0.5. C-reactive protein 34.4. Review of Systems Constitutional: Denies fever, chills, sweats, weight gain, or loss. HEENT: Negative for migraines, blurred vision or loss, earaches, drainage, tinnitus, oral mucosal lesions, dysphagia, or odynophagia. CARDIAC: Negative for chest pain, arrhythmias, or palpitation. RESPIRATORY: Negative for shortness of breath, hemoptysis, cough, or sputum production. GI: See HPI for pertinent findings. : Negative for hematuria, urgency, frequency, polyuria, or dysuria. GYNc: Denies possibility of . Negative vaginal discharge. MUSCULOSKELETAL: Negative for muscle aches, swelling, arthritis, and arthralgias. NEUROLOGIC: Negative for stroke or TIA. ENDOCRINE: Negative for thyroid problems. SKIN: Negative for rash or itching. PSYCHIATRIC: Negative history for depression and anxiety Past Medical History Past Medical History: No Reported History Additional Past Medical History / Comment(s): CURRENT: DI[facility]HEA- [facility] History of Any Multi-Drug Resistant Organisms: None Reported Past Surgical History: No Surgical Hx Reported Past Anesthesia/Blood Transfusion Reactions: No Reported Reaction Additional Past Anesthesia/Blood Transfusion Reaction / Comm: HAS NEVER HAD ANESTHESIA Past Psychological History: No Psychological Hx Reported Smoking Status: Never smoker Past Alcohol Use History: Rare Past Drug Use History: None Reported Medications and Allergies Home Medications Medication Instructions Recorded Confirmed Type predniSONE 50 mg PO DAILY 10/09/18 10/17/18 History sulfaSALAzine [Azulfidine] 1,000 mg PO TID 10/09/18 10/17/18 History Ferrous Sulfate [Feosol] 325 mg PO DAILY 10/17/18 10/17/18 History Allergies Allergy/AdvReac Type Severity Reaction Status Date / Time No Known Allergies Allergy Verified 10/17/18 13:37 Physical Exam Vitals: Vital Signs Temp Pulse Pulse Resp BP BP Pulse Ox 10/18/18 12:29 98.6 F 81 16 123/82 99 10/18/18 05:50 97.4 F L 75 18 115/77 98 10/17/18 23:00 98.5 F 91 20 125/82 97 10/17/18 15:03 99.4 F 89 16 127/83 97 10/17/18 14:00 97.9 F 88 18 135/95 99 Intake and Output 10/17/18 10/18/18 10/18/18 22:59 06:59 14:59 Intake Total 200 Balance 200 Intake: Oral 200 Other: # Voids 2 # Bowel Movements 2 1 General appearance: The patient is alert, oriented, in no acute distress. HET: Head is normocephalic and atraumatic. Pupils are equal and reactive. Oropharynx is clear without lesions. Neck: Supple without lymphadenopathy. Trachea midline. Heart: S1 S2. Regular rate and rhythm. Lungs: No crackles or wheezes are heard. Abdomen: Soft, nontender, nondistended with bowel sounds. No peritoneal signs. No palpable organomegaly or masses. Extremities: Normal skin color and turgor. No cyanosis, rash, ulceration, clubbing, or edema. Radial and pedal pulses are 2/4 bilaterally. Neurological: No focal deficits. Strength and sensation are grossly intact. Results CBC & Chem 7: 10/18/18 09:10 10/18/18 09:10 Labs: Abnormal Lab Results - Last 24 Hours (Table) 10/17/18 10/18/18 10/18/18 Range/Units 17:59 00:40 09:10 WBC 13.2 H 17.2 H (3.8-10.6) k/uL RBC 3.22 L 3.43 L 3.23 L (3.80-5.40) m/uL Hgb 7.2 L 7.4 L 7.4 L (11.4-16.0) gm/dL Hct 24.5 L 26.0 L 25.3 L (34.0-46.0) % MCV 76.0 L 75.8 L 78.4 L (80.0-100.0) fL MCH 22.4 L 21.5 L 22.8 L (25.0-35.0) pg MCHC 29.4 L 28.4 L 29.2 L (31.0-37.0) g/dL RDW 20.6 H 20.7 H 19.3 H (11.5-15.5) % Plt Count 692 H 729 H 740 H (150-450) k/uL Neutrophils # 8.6 H 9.2 H 14.4 H (1.3-7.7) k/uL Lymphocytes # 0.7 L (1.0-4.8) k/uL Eosinophils # 1.1 H (0-0.7) k/uL Sodium (137-145) mmol/L Creatinine (0.52-1.04) mg/dL Glucose (74-99) mg/dL Calcium (8.4-10.2) mg/dL 10/18/18 Range/Units 09:10 WBC (3.8-10.6) k/uL RBC (3.80-5.40) m/uL Hgb (11.4-16.0) gm/dL Hct (34.0-46.0) % MCV (80.0-100.0) fL MCH (25.0-35.0) pg MCHC (31.0-37.0) g/dL RDW (11.5-15.5) % Plt Count (150-450) k/uL Neutrophils # (1.3-7.7) k/uL Lymphocytes # (1.0-4.8) k/uL Eosinophils # (0-0.7) k/uL Sodium 136 L (137-145) mmol/L Creatinine 0.47 L (0.52-1.04) mg/dL Glucose 131 H (74-99) mg/dL Calcium 8.2 L (8.4-10.2) mg/dL Assessment and Plan (1) Exacerbation of ulcerative colitis Narrative/Plan: 33-year-old female admitted with acute blood loss anemia secondary to exacerbation of ulcerative colitis persistent rectal bleeding 3 months duration after recent surveillance colonoscopy in July maintained on oral prednisone therapy and Azulfidine without improvement. Status: Acute Code(s): K51.90 - ULCERATIVE COLITIS, UNSPECIFIED, WITHOUT COMPLICATIONS SNOMED Code(s): 180645441 (2) Acute blood loss anemia Status: Acute Code(s): D62 - ACUTE POSTHEMORRHAGIC ANEMIA SNOMED Code(s): 477507808 Plan: 1. Dc per medicine patient is agreeable for discharge. Patient is presently comfortable without abdominal pain. Vital signs stable. C-reactive protein reviewed 34. Low residue diet. Prednisone 40 mg daily. Azulfidine 1 gram QID. RTO Sunday with Dr. Sutherland for discussion of outpatient medication management of her UC. Outpatient CBC monitoring. Thank you for this kind referral and the opportunity to participate in the care of your patient. This consultation was discussed with Dr. Marin. The impression and plan of care have been directed as dictated.
--- NOTE | 2018-10-18 16:05 | P.DS ---
Providers Date of admission: 10/17/18 13:11 Attending physician: Neal Loyoal MD Primary care physician: Stated None Hospital Course: 33-year-old female was admitted for ulcerative colitis exacerbation patient still has diarrhea quite a few episodes hemoglobin remained stable does have occasional blood in the stools as well was evaluated by gastroenterology. Patient wanted to go home and gastroenterology is agreeable with her discharge and patient will follow with him on Sunday patient will need new biologic agents patient is already on high-dose of steroid at home along with the sulfasalazine. PHYSICAL EXAMINATION: GENERAL: The patient is alert and oriented x3, not in any acute distress. Well developed, well nourished. HEENT: Pupils are round and equally reacting to light. EOMI. No scleral icterus. No conjunctival pallor. Normocephalic, atraumatic. No pharyngeal erythema. No thyromegaly. CARDIOVASCULAR: S1 and S2 present. No murmurs, rubs, or gallops. PULMONARY: Chest is clear to auscultation, no wheezing or crackles. ABDOMEN: Soft, nontender, nondistended, normoactive bowel sounds. No palpable organomegaly. MUSCULOSKELETAL: No joint swelling or deformity. EXTREMITIES: No cyanosis, clubbing, or pedal edema. NEUROLOGICAL: Gross neurological examination did not reveal any focal deficits. SKIN: No rashes. For other chronic medical problems hospitalization course please refer to my HPI from as today Plan - Discharge Summary Discharge Rx Participant: No New Discharge Prescriptions: No Action sulfaSALAzine [Azulfidine] 1,000 mg PO TID predniSONE 50 mg PO DAILY Ferrous Sulfate [Feosol] 325 mg PO DAILY Discharge Medication List predniSONE 50 mg PO DAILY 10/09/18 [History] sulfaSALAzine [Azulfidine] 1,000 mg PO TID 10/09/18 [History] Ferrous Sulfate [Feosol] 325 mg PO DAILY 10/17/18 [History] Follow up Appointment(s)/Referral(s): Grover Sutherland MD [STAFF PHYSICIAN] - 10/21/18 5:00 pm Delfina Flanagan MD [STAFF PHYSICIAN] - 1 Week Patient Instructions/Handouts: Low Fiber Diet (DC), Ulcerative Colitis (DC) Discharge Disposition: HOME SELF-CARE
== END 2018-10-18 14:47 | disposition home or self-care (01) | DRG 386 ==
LOC: EC 10:46 → 4MS4W 13:11
PROVIDERS: ADMIT Internal Medicine; ATTEND Internal Medicine
DX: K51.911 Ulcerative colitis, unspecified with rectal bleeding (principal); D62 Acute posthemorrhagic anemia; R42 Dizziness and giddiness; R06.02 Shortness of breath; D72.829 Elevated white blood cell count, unspecified; R79.89 Other specified abnormal findings of blood chemistry; T38.0X5A Adverse effect of glucocorticoids and synthetic analogues, initial encounter; Z79.52 Long term (current) use of systemic steroids; D47.3 Essential (hemorrhagic) thrombocythemia
CPT/HCPCS: 36415; 80048; 80053; 85025; 85610; 85730; 86140; 86850; 86900; 86901; 96374; 99285

== ENCOUNTER 2018-10-23 19:51 | Inpatient (IN) | payer BC, OTHER ==
[2018-10-24] MEDS: LEVOFLOXACIN 500MG-D5W PMX 500 MG in DEXTROSE/WATER 1 100ML.BAG IVPB SCH (03:28)
[2018-10-24] MEDS: SODIUM CHLORIDE 0.9% 1,000 ML IV SCH ×2 (03:29→13:55)
[2018-10-24] MEDS: MORPHINE SULFATE 2 MG/ML SYRINGE IVP PRN ×2 (04:41→15:14)
[2018-10-24] MEDS: PANTOPRAZOLE 40 MG/10 ML VIAL IVP SCH ×2 (07:11→21:02)
[2018-10-24] MEDS: metroNIDAZOLE-NS PMX 500 MG in SALINE 1 100ML.BAG IVPB SCH ×3 (07:12→23:42)
[2018-10-24] MEDS ORDERED: sulfaSALAzine 500 MG TAB PO SCH (09:00)
[2018-10-24 09:23] LABS: African American GFR (CKD) >90 (>60 ml/min/1.73 sqM); Anion Gap 5 mmol/L; Blood Urea Nitrogen 7 mg/dL (7-17); Calcium 7.9 mg/dL (8.4-10.2); Carbon Dioxide 24 mmol/L (22-30); Chloride 104 mmol/L (98-107); Glucose 85 mg/dL (74-99); Potassium 4.2 mmol/L (3.5-5.1); Sodium 133 mmol/L (137-145)
[2018-10-24 09:35] LABS: Anisocytosis Slight; Basophils # (A) 0.1 k/uL (0-0.2); Basophils % (A) 1 %; Eosinophils # (A) 0.4 k/uL (0-0.7); Eosinophils % (A) 5 %; HCT 24.6 % (34.0-46.0); HGB 7.3 gm/dL (11.4-16.0); Hypochromasia Marked; Lymphocytes # (A) 1.6 k/uL (1.0-4.8); Lymphocytes % (A) 19 %; MCH 22.9 pg (25.0-35.0); MCHC 29.8 g/dL (31.0-37.0); MCV 76.8 fL (80.0-100.0); Mean Platelet Volume 6.7; Microcytosis Moderate; Monocytes % (A) 12 %; Neutrophils # (A) 5.2 k/uL (1.3-7.7); Neutrophils % (A) 61 %; Platelet Count 676 k/uL (150-450); Poikilocytosis Moderate; RBC 3.21 m/uL (3.80-5.40); RDW 19.8 % (11.5-15.5); WBC 8.5 k/uL (3.8-10.6)
[2018-10-24 11:08] VITALS: BMI 22.7
--- NOTE | 2018-10-24 15:29 | P.CONS ---
History of Present Illness - Reason for Consult Consult date: 10/24/18 GI bleed Requesting physician: Pa Salazar - Chief Complaint Abdominal pain and rectal bleeding - History of Present Illness 33-year-old female patient of Dr. Sutherland with a past medical history of ulcerative colitis diagnosed about 5 years ago presents with persistent rectal bleeding 3 months duration. She was recently hospitalized last week for exacerbation ulcerative colitis. She has been maintained on outpatient prednisone and Azulfidine without improvement. She was seen by Dr. Sutherland a few days ago with discussion of initiating biological therapy. Passing multiple grossly bloody bowel movements daily. Reports a fever of 101 prior to admission. Admission hemoglobin 7.3. Previous hemoglobin last week was 7.2 but as low as 6.4. She received 2 units of blood on October 09. C. diff negative. BUN 7. Creatinine 0.5. CRP last week was 34. T-max 100.5. Last colonoscopy screening [address] Sutherland unsure if her biopsies were consistent with active colitis. Review of Systems Constitutional: Reports fever denies, chills, sweats, weight gain, or loss. HEENT: Negative for migraines, blurred vision or loss, earaches, drainage, tinnitus, oral mucosal lesions, dysphagia, or odynophagia. CARDIAC: Negative for chest pain, arrhythmias, or palpitation. RESPIRATORY: Negative for shortness of breath, hemoptysis, cough, or sputum production. GI: See HPI for pertinent findings. : Negative for hematuria, urgency, frequency, polyuria, or dysuria. GYNc: Denies possibility of . Negative vaginal discharge. MUSCULOSKELETAL: Negative for muscle aches, swelling, arthritis, and arthralgias. NEUROLOGIC: Negative for stroke or TIA. ENDOCRINE: Negative for thyroid problems. SKIN: Negative for rash or itching. PSYCHIATRIC: Negative history for depression and anxiety Past Medical History Past Medical History: No Reported History Additional Past Medical History / Comment(s): CURRENT: DIARRHEA- U.C. History of Any Multi-Drug Resistant Organisms: None Reported Past Surgical History: No Surgical Hx Reported Past Anesthesia/Blood Transfusion Reactions: No Reported Reaction Additional Past Anesthesia/Blood Transfusion Reaction / Comm: HAS NEVER HAD ANESTHESIA Past Psychological History: No Psychological Hx Reported Smoking Status: Never smoker Past Alcohol Use History: Rare Past Drug Use History: None Reported - Past Family History Father Additional Family Medical History / Comment(s): no major health issues Medications and Allergies Home Medications Medication Instructions Recorded Confirmed Type predniSONE 50 mg PO DAILY 10/09/18 10/23/18 History sulfaSALAzine [Azulfidine] 1,000 mg PO TID 10/09/18 10/23/18 History Ferrous Sulfate [Feosol] 325 mg PO DAILY 10/17/18 10/23/18 History Allergies Allergy/AdvReac Type Severity Reaction Status Date / Time No Known Allergies Allergy Verified 10/23/18 23:37 Physical Exam Vitals: Vital Signs Temp Pulse Resp BP Pulse Ox 10/24/18 08:00 18 10/24/18 05:28 109 H 18 97 10/24/18 04:40 99.9 F H 116 H 18 109/72 98 10/23/18 22:55 100.5 F H 109 H 18 116/78 91 L Intake and Output 10/24/18 10/24/18 10/24/18 06:59 14:59 22:59 Intake Total 0 Output Total 2 1 Balance -2 -1 Intake: Oral 0 Output: Urine 1 Urine/Stool Mix 2 Other: Voiding Method Toilet # Voids 1 1 # Bowel Movements 1 2 Weight 61.915 kg 61.915 kg General appearance: The patient is alert, oriented, in no acute distress. HET: Head is normocephalic and atraumatic. Pupils are equal and reactive. Oropharynx is clear without lesions. Neck: Supple without lymphadenopathy. Trachea midline. Heart: S1 S2. Regular rate and rhythm. Lungs: No crackles or wheezes are heard. Abdomen: Soft, mildly bloated diffusely tender across the midabdomen with bowel sounds. No peritoneal signs. No palpable organomegaly or masses. Extremities: Normal skin color and turgor. No cyanosis, rash, ulceration, clubbing, or edema. Radial and pedal pulses are 2/4 bilaterally. Neurological: No focal deficits. Strength and sensation are grossly intact. Results CBC & Chem 7: 10/24/18 08:32 10/24/18 08:32 Labs: Abnormal Lab Results - Last 24 Hours (Table) 10/24/18 10/24/18 Range/Units 08:32 08:32 RBC 3.21 L (3.80-5.40) m/uL Hgb 7.3 L (11.4-16.0) gm/dL Hct 24.6 L (34.0-46.0) % MCV 76.8 L (80.0-100.0) fL MCH 22.9 L (25.0-35.0) pg MCHC 29.8 L (31.0-37.0) g/dL RDW 19.8 H (11.5-15.5) % Plt Count 676 H (150-450) k/uL Sodium 133 L (137-145) mmol/L Creatinine 0.51 L (0.52-1.04) mg/dL Calcium 7.9 L (8.4-10.2) mg/dL Assessment and Plan (1) Abdominal pain Narrative/Plan: 33-year-old female with a history of ulcerative colitis admitted with ulcerative colitis exacerbation with underlying acute blood loss anemia, fever abdominal pain persistent rectal bleeding 3 months duration refractory to outpatient prednisone and Azulfidine therapy. Current Visit: No Status: Acute Code(s): R10.9 - UNSPECIFIED ABDOMINAL PAIN SNOMED Code(s): 62320253 (2) GI bleed Current Visit: Yes Status: Acute Code(s): K92.2 - GASTROINTESTINAL HEMORRHAGE, UNSPECIFIED SNOMED Code(s): 66909385 (3) Acute blood loss anemia Current Visit: No Status: Acute Code(s): D62 - ACUTE POSTHEMORRHAGIC ANEMIA SNOMED Code(s): 143102903 Plan: 1. IV Solu-Medrol 20 mg every 8 hours. IV FLAGYL AND LEVAQUIN. Blood cultu res. Lactic acid. Iron indices. CRP now and daily. CT abdomen and pelvis with contrast. 2. Clear liquid diet. CBC BMP monitoring. Blood transfusions as indicated. TPMT enzyme activity/RBC. TB QuantiFERON/hepatitis testing requested in preparation for biological therapy. 3. We'll review office endoscopic records. Thank you for this kind referral and the opportunity to participate in the care of your patient. This consultation was discussed with Dr. Sutherland. The impression and plan of care have been directed as dictated.
[2018-10-24] MEDS: IOPAMIDOL-300 CONTRAST 30 ML VIAL (ORAL USE) PO PRN ×2 (15:49→16:30)
[2018-10-24] MEDS: methylPREDNISolone SOD SUCCI 40 MG/ML 1 ML VIAL IV SCH ×2 (16:15→23:42)
--- NOTE | 2018-10-24 17:42 | CT ---
EXAMINATION TYPE: CT abdomen pelvis w con DATE OF EXAM: 10/24/2018 COMPARISON: None HISTORY: Rectal bleeding and fever. CT DLP: 513 mGycm Automated exposure control for dose reduction was used. TECHNIQUE: Helical acquisition of images was performed from the lung bases through the pelvis. CONTRAST: Performed with Oral Contrast and with IV Contrast, patient injected with 100ml mL of Isovue 300. FINDINGS: There is subsegmental atelectasis at the lung bases. There is no pleural effusion. Heart size is norm al. There is no pericardial effusion. Liver spleen pancreas gallbladder appear normal. Bile ducts are not dilated. Stomach appears normal. There is no adrenal mass. Kidneys show satisfactory contrast opacification. There is no hydronephrosi s. Ureters are not dilated. There is no retroperitoneal adenopathy. Bladder distends smoothly. There is no inguinal hernia. There is no ascites. There is diffuse wall thickening of the large bowel and more severe involving the ascending colon. Th ere is fat stranding around the ascending colon. There are colonic fluid levels down to the rectum. Small bowel is not dilated. There is no free air. Lumbar spine is intact. The bony pelvis is intact. IMPRESSION: DIFFUSE WALL THICKENING WITH SURROUNDING INFLAMMATORY CHANGES OF A LARGE BOWEL IS CONSISTENT WITH DIF FUSE COLITIS. NO FREE AIR. COLONIC FLUID LEVELS CONSISTENT WITH DIARRHEA. NO DISCRETE FLUID COLLECTIO N SEEN TO SUGGEST AN ABSCESS.
[2018-10-24 18:46] LABS: Iron Saturation 6.22 (12.00-45.00)
--- NOTE | 2018-10-24 21:23 | P.HPIM ---
History of Present Illness H&P Date: 10/24/18 Chief Complaint: Bloody diarrhea and abdominal pain With regard female with known history of ulcerative colitis diagnosed about 5 years ago and is on sulfasalazine initially presents to [facility] with complaints of rectal bleeding and abdominal pain for the past 3 weeks. Patient was recently admitted to the hospital for ulcerative colitis exacerbation. Patient was febrile with tachycardia and diarrhea on admission. Patient follows with Dr. Meyers as an outpatient. Patient was transferred to [facility] for further management and GI consultation. No chest pain or shortness of breath. Recently patient had hemoglobin of 6.4 and transfuse with 2 units of blood PRBC. Hemoglobin again dropped to 6.7 on admission. Patient also having abdominal pain mainly lower abdomen and right lower quadrant. No hematemesis or melena. No dysuria or hematuria. Chief is negative. Review of Systems Constitutional: Patient denies any fever or chills . No generalized weakness or weight loss. Abdomen: Abdominal pain with bloody diarrhea.. Cardiovascular: Patient denies any chest pain or short of breath no palpitations. Respiratory: patient denied any cough is from production. No shortness of breat h Neurologic: Patient denied any numbness or tingling headache. Musculoskeletal: Patient denies any complaints of joint swelling or deformity. Skin: Negative Psychiatric: Negative Endocrine: No heat or cold intolerance. No recent weight gain. Genitourinary: No dysuria or hematuria. All other 14 point ROS negative except the above Past Medical History Past Medical History: No Reported History Additional Past Medical History / Comment(s): CURRENT: DIARRHEA- U.C. History of Any Multi-Drug Resistant Organisms: None Reported Past Surgical History: No Surgical Hx Reported Past Anesthesia/Blood Transfusion Reactions: No Reported Reaction Additional Past Anesthesia/Blood Transfusion Reaction / Comment(s): HAS NEVER HAD ANESTHESIA Past Psychological History: No Psychological Hx Reported Smoking Status: Never smoker Past Alcohol Use History: Rare Past Drug Use History: None Reported - Past Family History Father Additional Family Medical History / Comment(s): no major health issues Medications and Allergies Home Medications Medication Instructions Recorded Confirmed Type predniSONE 50 mg PO DAILY 10/09/18 10/23/18 History sulfaSALAzine [Azulfidine] 1,000 mg PO TID 10/09/18 10/23/18 History Ferrous Sulfate [Feosol] 325 mg PO DAILY 10/17/18 10/23/18 History Allergies Allergy/AdvReac Type Severity Reaction Status Date / Time No Known Allergies Allergy Verified 10/23/18 23:37 Physical Exam Vitals: Vital Signs Temp Pulse Resp BP Pulse Ox 10/24/18 05:28 109 H 18 97 10/24/18 04:40 99.9 F H 116 H 18 109/72 98 10/23/18 22:55 100.5 F H 109 H 18 116/78 91 L Intake and Output 10/23/18 10/24/18 10/24/18 22:59 06:59 14:59 Intake Total 0 Output Total 2 1 Balance -2 -1 Intake: Oral 0 Output: Urine 1 Urine/Stool Mix 2 Other: # Voids 1 # Bowel Movements 1 2 Weight 61.915 kg 61.915 kg PHYSICAL EXAMINATION: Patient is lying in the bed comfortably, no acute distress, awake alert and oriented.. HEENT: Normocephalic. Neck is supple. Pupils reactive. Nostrils clear. Oral cavity is moist. Ears reveal no drainage. Neck reveals no JVD, carotid bruits, or thyromegaly. CHEST EXAMINATION: Trachea is central. Symmetrical expansion. Lung small clear to auscultation and percussion. CARDIAC: Normal S1, S2 with no gallops. No murmurs ABDOMEN: Soft. Right lower quadrant tenderness. No guarding no rigidity. Bowel sounds normal. No organomegaly. No abdominal bruits. Extremities: reveal no edema. No clubbing or cyanosis Neurologically awake, alert, oriented x3 with well-coordinated movements. No f ocal deficits noted Skin: No rash or skin lesions. Psychiatric: Coperative. Nonsuicidal Musculoskeletal: No joint swelling or deformity. Normal range of motion. Results CBC & Chem 7: 10/24/18 08:32 10/24/18 08:32 Labs: Abnormal Lab Results - Last 24 Hours (Table) 10/24/18 10/24/18 Range/Units 08:32 08:32 RBC 3.21 L (3.80-5.40) m/uL Hgb 7.3 L (11.4-16.0) gm/dL Hct 24.6 L (34.0-46.0) % MCV 76.8 L (80.0-100.0) fL MCH 22.9 L (25.0-35.0) pg MCHC 29.8 L (31.0-37.0) g/dL RDW 19.8 H (11.5-15.5) % Plt Count 676 H (150-450) k/uL Sodium 133 L (137-145) mmol/L Creatinine 0.51 L (0.52-1.04) mg/dL Calcium 7.9 L (8.4-10.2) mg/dL Thrombosis Risk Factor Assmnt - DVT/VTE Prophylaxis DVT/VTE Prophylaxis: Mechanical Prophylaxis ordered - Choose All That Apply Any of the Below Risk Factors Present?: No Other Risk Factors: No Other congenital or acquired thrombophilia - If yes, enter type in comment: No Thrombosis Risk Factor Assessment Level: Very Low Risk Assessment and Plan Assessment: Pain and bloody diarrhea secondary to acute ulcerative colitis exacerbation Fever and tachycardia due to colitis. Acute blood loss anemia Microcytic iron deficiency anemia DVT prophylaxis with SCDs. Patient be continued on IV hydration, IV antibiotics in the form of Levaquin and Flagyl. Will rule out infection. C. diff toxin is negative. Patient was seen by GI and will be started on IV steroids in the form of methylprednisolone. Monitor H&H. Follow blood culture reports. Further recommendations based on the clinical course. Time with Patient: Greater than 30
[2018-10-25] MEDS: LEVOFLOXACIN 500MG-D5W PMX 500 MG in DEXTROSE/WATER 1 100ML.BAG IVPB SCH (00:51)
[2018-10-25] MEDS: SODIUM CHLORIDE 0.9% 1,000 ML IV SCH ×2 (00:54→07:12)
[2018-10-25] MEDS: methylPREDNISolone SOD SUCCI 40 MG/ML 1 ML VIAL IV SCH ×2 (07:11→15:05)
[2018-10-25] MEDS: PANTOPRAZOLE 40 MG/10 ML VIAL IVP SCH ×2 (07:11→21:31)
[2018-10-25] MEDS: metroNIDAZOLE-NS PMX 500 MG in SALINE 1 100ML.BAG IVPB SCH ×2 (07:11→15:04)
[2018-10-25 09:07] LABS: Anisocytosis Slight; Basophils % (A) 0 %; Eosinophils % (A) 1 %; HCT 25.8 % (34.0-46.0); HGB 7.7 gm/dL (11.4-16.0); Hypochromasia Marked; Lymphocytes # (A) 0.6 k/uL (1.0-4.8); Lymphocytes % (A) 10 %; MCH 22.9 pg (25.0-35.0); MCHC 29.8 g/dL (31.0-37.0); MCV 76.8 fL (80.0-100.0); Mean Platelet Volume 6.6; Microcytosis Moderate; Monocytes # (A) 0.2 k/uL (0-1.0); Monocytes % (A) 4 %; Neutrophils # (A) 5.5 k/uL (1.3-7.7); Neutrophils % (A) 85 %; Platelet Count 733 k/uL (150-450); Poikilocytosis Moderate; RBC 3.35 m/uL (3.80-5.40); RDW 19.4 % (11.5-15.5); WBC 6.5 k/uL (3.8-10.6)
[2018-10-25 09:08] LABS: African American GFR (CKD) >90 (>60 ml/min/1.73 sqM); Anion Gap 7 mmol/L; Blood Urea Nitrogen 6 mg/dL (7-17); Calcium 8.3 mg/dL (8.4-10.2); Carbon Dioxide 23 mmol/L (22-30); Chloride 104 mmol/L (98-107); Glucose 172 mg/dL (74-99); Potassium 4.1 mmol/L (3.5-5.1); Sodium 134 mmol/L (137-145)
[2018-10-25 09:41] LABS: C Reactive Protein 181.6 mg/L (<10.0)
[2018-10-25] MEDS ORDERED: SODIUM FERRIC GLUCONAT-SUCROSE 125 MG in SODIUM CHLORIDE 0.9% 100 ML IVPB ONE (12:10)
[2018-10-25] MEDS: MORPHINE SULFATE 2 MG/ML SYRINGE IVP PRN (20:23)
--- NOTE | 2018-10-25 21:27 | P.PN ---
Subjective Progress Note Date: 10/25/18 Principal diagnosis: Acute ulcerative colitis exacerbation Patient is a 29-year-old female female with known history of ulcerative colitis diagnosed about 5 years ago and is on sulfasalazine initially presents to [facility] with complaints of rectal bleeding and abdominal pain for the past 3 weeks. Patient was recently admitted to the hospital for ulcerative colitis exacerbation. Patient was febrile with tachycardia and diarrhea on admission. Patient follows with Dr. Meyers as an outpatient. Patient was transferred to [facility] for further management and GI consultation. No chest pain or shortness of breath. Recently patient had hemoglobin of 6.4 and transfuse with 2 units of blood PRBC. Hemoglobin again dropped to 6.7 on admission. Patient also having abdominal pain mainly lower abdomen and right lower quadrant. No hematemesis or melena. No dysuria or hematuria. 10/25/2018 Patient says that her diarrhea is improving and still having blood in the stools. Hemoglobin is stable increased from 7.3-7.7 today. Patient was also given a dose of IV iron due to iron deficiency. Patient is being continued on IV steroids. C. diff toxin is negative. GI is following. Denied any complaints of chest pain or shortness of breath. no leg swelling. no headache or dizziness or lightheadedness. no fever no chills. Current medications reviewed. Objective - Vital Signs Vital signs: Vital Signs Temp 98.2 F 10/25/18 14:39 Pulse 92 10/25/18 15:10 Resp 16 10/25/18 15:10 BP 126/77 10/25/18 14:39 Pulse Ox 100 10/25/18 14:39 Intake & Output 10/24/18 10/25/18 10/25/18 18:59 06:59 18:59 Intake Total 900 Output Total 1 Balance -1 900 Weight 61.915 kg 61.915 kg Intake: Oral 900 Output: Urine 1 Other: Voiding Method Toilet Toilet Toilet # Voids 1 1 3 # Bowel Movements 2 - Exam PHYSICAL EXAMINATION: Patient is lying in the bed comfortably, no acute distress, awake alert and oriented.. HEENT: Normocephalic. Neck is supple. Pupils reactive. Nostrils clear. Oral cavity is moist. Ears reveal no drainage. Neck reveals no JVD, carotid bruits, or thyromegaly. CHEST EXAMINATION: Trachea is central. Symmetrical expansion. Lung small clear to auscultation and percussion. CARDIAC: Normal S1, S2 with no gallops. No murmurs ABDOMEN: Soft. Minimal tenderness right lower quadrant with deep palpation. Bowel sounds normal. No organomegaly. No abdominal bruits. Extremities: reveal no edema. No clubbing or cyanosis Neurologically awake, alert, oriented x3 with well-coordinated movements. No focal deficits noted Skin: No rash or skin lesions. Psychiatric: Coperative. Nonsuicidal Musculoskeletal: No joint swelling or deformity. Normal range of motion. - Labs CBC & Chem 7: 10/25/18 08:34 10/25/18 08:34 Labs: Abnormal Lab Results - Last 24 Hours (Table) 10/24/18 10/24/18 10/25/18 Range/Units 08:32 15:59 08:34 RBC (3.80-5.40) m/uL Hgb (11.4-16.0) gm/dL Hct (34.0-46.0) % MCV (80.0-100.0) fL MCH (25.0-35.0) pg MCHC (31.0-37.0) g/dL RDW (11.5-15.5) % Plt Count (150-450) k/uL Lymphocytes # (1.0-4.8) k/uL Sodium 134 L (137-145) mmol/L BUN 6 L (7-17) mg/dL Creatinine 0.37 L (0.52-1.04) mg/dL Glucose 172 H (74-99) mg/dL Calcium 8.3 L (8.4-10.2) mg/dL Iron 15 L (50-170) ug/dL Iron Saturation 6.22 L (12.00-45.00) C-Reactive Protein 172.6 H 181.6 H (<10.0) mg/L 10/25/18 Range/Units 08:34 RBC 3.35 L (3.80-5.40) m/uL Hgb 7.7 L (11.4-16.0) gm/dL Hct 25.8 L (34.0-46.0) % MCV 76.8 L (80.0-100.0) fL MCH 22.9 L (25.0-35.0) pg MCHC 29.8 L (31.0-37.0) g/dL RDW 19.4 H (11.5-15.5) % Plt Count 733 H (150-450) k/uL Lymphocytes # 0.6 L (1.0-4.8) k/uL Sodium (137-145) mmol/L BUN (7-17) mg/dL Creatinine (0.52-1.04) mg/dL Glucose (74-99) mg/dL Calcium (8.4-10.2) mg/dL Iron (50-170) ug/dL Iron Saturation (12.00-45.00) C-Reactive Protein (<10.0) mg/L Microbiology - Last 24 Hours (Table) 10/24/18 08:32 Blood Culture - Preliminary Blood No Growth after 24 hours Assessment and Plan Assessment: Pain and bloody diarrhea secondary to acute ulcerative colitis exacerbation Fever and tachycardia due to colitis. Improved now. Acute blood loss anemia Microcytic iron deficiency anemia DVT prophylaxis with SCDs. Patient be continued on IV hydration, IV antibiotics in the form of Levaquin and Flagyl. And with IV steroids.. C. diff toxin is negative. Patient was seen by GI. Monitor H&H. Follow blood culture reports. Further recommendations based on the clinical course. Time with Patient: Greater than 30
[2018-10-26 00:15] LABS: Hepatitis A Antibody IgM Non-Reactive (Non-Reactive); Hepatitis B Core IgM Non-Reactive (Non-Reactive)
[2018-10-26] MEDS: methylPREDNISolone SOD SUCCI 40 MG/ML 1 ML VIAL IV SCH ×3 (00:42→15:27)
[2018-10-26] MEDS: SODIUM CHLORIDE 0.9% 1,000 ML IV SCH ×3 (00:43→17:02)
[2018-10-26] MEDS: metroNIDAZOLE-NS PMX 500 MG in SALINE 1 100ML.BAG IVPB SCH ×3 (00:43→15:27)
[2018-10-26] MEDS: LEVOFLOXACIN 500MG-D5W PMX 500 MG in DEXTROSE/WATER 1 100ML.BAG IVPB SCH (01:58)
--- NOTE | 2018-10-26 02:10 | P.PN ---
Subjective Progress Note Date: 10/25/18 Principal diagnosis: Ulcerative colitis, blood per rectum Patient seen lying in bed. Tolerated advancement in her diet. Reports 6 bowel movements a day with decreasing blood. Objective - Vital Signs Vital signs: Vital Signs Temp 98.3 F 10/25/18 20:30 Pulse 75 10/25/18 20:30 Resp 18 10/25/18 20:30 BP 114/75 10/25/18 20:30 Pulse Ox 99 10/25/18 20:30 Intake & Output 10/25/18 10/25/18 10/26/18 06:59 18:59 06:59 Intake Total 900 Balance 900 Weight 61.915 kg Intake: Oral 900 Other: Voiding Method Toilet Toilet # Voids 1 3 1 - Exam On physical examination, patient appears comfortable in no apparent distress. HEAD: Normocephalic, atraumatic. EYES: No scleral icterus. No conjunctival injection. MOUTH: No lesions, tongue midline. NECK: Trachea midline, no gross abnormalities. CHEST: Clear to auscultation with no wheezing or rhonchi appreciated. HEART: Regular rate and rhythm. ABDOMEN: Soft, obese. Bowel sounds are positive. No organomegaly. No guarding or rigidity. EXTREMITIES: No pedal edema. SKIN: No rashes, no jaundice. NEUROLOGIC: Alert and oriented x3. No focal deficits. - Labs CBC & Chem 7: 10/25/18 08:34 10/25/18 08:34 Labs: Abnormal Lab Results - Last 24 Hours (Table) 10/25/18 10/25/18 Range/Units 08:34 08:34 RBC 3.35 L (3.80-5.40) m/uL Hgb 7.7 L (11.4-16.0) gm/dL Hct 25.8 L (34.0-46.0) % MCV 76.8 L (80.0-100.0) fL MCH 22.9 L (25.0-35.0) pg MCHC 29.8 L (31.0-37.0) g/dL RDW 19.4 H (11.5-15.5) % Plt Count 733 H (150-450) k/uL Lymphocytes # 0.6 L (1.0-4.8) k/uL Sodium 134 L (137-145) mmol/L BUN 6 L (7-17) mg/dL Creatinine 0.37 L (0.52-1.04) mg/dL Glucose 172 H (74-99) mg/dL Calcium 8.3 L (8.4-10.2) mg/dL C-Reactive Protein 181.6 H (<10.0) mg/L Microbiology - Last 24 Hours (Table) 10/24/18 08:32 Blood Culture - Preliminary Blood No Growth after 24 hours Assessment and Plan (1) Exacerbation of ulcerative colitis Narrative/Plan: Patient with a known history of ulcerative colitis on treatment with 5 ASA and prednisone in the outpatient setting with discussion of initiation of biologic therapy who presented with increasing blood per rectum in frequency. Currently being treated with IV Solu-Medrol for exacerbation of her ulcerative colitis reporting improvement in symptoms. Current Visit: No Status: Acute Code(s): K51.90 - ULCERATIVE COLITIS, UNSPECIFIED, WITHOUT COMPLICATIONS SNOMED Code(s): 489314197 (2) GI bleed Current Visit: Yes Status: Acute Code(s): K92.2 - GASTROINTESTINAL HEMORRHAGE, UNSPECIFIED SNOMED Code(s): 13025443 (3) Acute blood loss anemia Current Visit: No Status: Acute Code(s): D62 - ACUTE POSTHEMORRHAGIC ANEMIA SNOMED Code(s): 229202392 Plan: Supportive care All low fiber diet Continue IV Solu-Medrol Continue to monitor CBC, ESR, CRP Continue to monitor stool output Patient will need tapering dose of steroids upon discharge with follow-up with gastroenterology in the outpatient setting for initiation of biologic therapy Thank you for allowing us to participate in the care of this patient we will continue to follow
[2018-10-26] MEDS: PANTOPRAZOLE 40 MG/10 ML VIAL IVP SCH ×2 (08:16→21:24)
--- NOTE | 2018-10-26 15:12 | P.PN ---
Subjective Progress Note Date: 10/26/18 Principal diagnosis: Exacerbation of ulcerative colitis Patient is a 29-year-old female female with known history of ulcerative colitis diagnosed about 5 years ago and is on sulfasalazine initially presents to [facility] with complaints of rectal bleeding and abdominal pain for the past 3 weeks. Patient was recently admitted to the hospital for ulcerative colitis exacerbation. Patient was febrile with tachycardia and diarrhea on admission. Patient follows with Dr. Meyers as an outpatient. Patient was transferred to [facility] for further management and GI consultation. No chest pain or shortness of breath. Recently patient had hemoglobin of 6.4 and transfuse with 2 units of blood PRBC. Hemoglobin again dropped to 6.7 on admission. On 10/26/2018 - patient is lying in bed appears to be no acute distress. Patient still reports that she is still having the area and minimal amount of blood in her stool. Ration states that she received IV iron therapy. She is currently on IV steroids and also IV antibiotics. GI following. Patient denies having any chest pain or difficulty in breathing. Denies having any hematuria or dysuria. Patient denies having any headaches blurry vision. Objective - Vital Signs Vital signs: Vital Signs Temp 97.6 F 10/26/18 13:26 Pulse 104 H 10/26/18 13:26 Resp 16 10/26/18 13:26 BP 118/78 10/26/18 13:26 Pulse Ox 94 L 10/26/18 13:26 Intake & Output 10/25/18 10/26/18 10/26/18 18:59 06:59 18:59 Weight 61.915 kg Other: Voiding Method Toilet Toilet # Voids 3 3 3 # Bowel Movements 1 1 - Exam Patient is lying in the bed comfortably, no acute distress, awake alert and oriented. HEENT: Mild pallor CHEST EXAMINATION: Trachea is central. Symmetrical expansion. Lung small clear to auscultation and percussion. CARDIAC: Patient has tachycardia. ABDOMEN: Soft. Minimal tenderness right lower quadrant with deep palpation. Bowel sounds normal. No organomegaly. No abdominal bruits. Extremities: reveal no edema. No clubbing or cyanosis Neurologically awake, alert, oriented x3 with well-coordinated movements. No focal deficits noted Skin: No rash or skin lesions. Psychiatric: Coperative. Nonsuicidal Musculoskeletal: No joint swelling or deformity. Normal range of motion. - Labs CBC & Chem 7: 10/25/18 08:34 10/25/18 08:34 Labs: Abnormal Lab Results - Last 24 Hours (Table) 10/26/18 Range/Units 07:50 C-Reactive Protein 64.6 H (<10.0) mg/L Microbiology - Last 24 Hours (Table) 10/24/18 08:32 Blood Culture - Preliminary Blood No Growth after 48 hours Assessment and Plan Assessment: ASSESSMENT Acute ulcerative colitis exacerbation Fever and tachycardia due to colitis. Improved now. Acute blood loss anemia Microcytic iron deficiency anemia DVT prophylaxis with SCDs. PLAN :Patient will be continued on IV steroids. We will repeat a CBC to look at her hemoglobin. The patient has tachycardia. If hemoglobin is less than 7 will transfuse with 1 unit of PRBCs. C. diff toxin has been negative. Patient will be continued on IV steroids for exacerbation. Further recommendations depending on the progress of the patient.
[2018-10-26 15:28] LABS: Anisocytosis Slight; Basophils % (A) 0 %; Eosinophils % (A) 0 %; HGB 7.1 gm/dL (11.4-16.0); Hypochromasia Marked; Lymphocytes # (A) 1.2 k/uL (1.0-4.8); Lymphocytes % (A) 10 %; MCH 25.8 pg (25.0-35.0); MCHC 32.1 g/dL (31.0-37.0); MCV 80.3 fL (80.0-100.0); Mean Platelet Volume 7.5; Microcytosis Slight; Monocytes # (A) 0.8 k/uL (0-1.0); Monocytes % (A) 7 %; Neutrophils # (A) 9.2 k/uL (1.3-7.7); Neutrophils % (A) 80 %; Platelet Count 608 k/uL (150-450); Poikilocytosis Moderate; RBC 2.73 m/uL (3.80-5.40); RDW 19.2 % (11.5-15.5); WBC 11.4 k/uL (3.8-10.6)
[2018-10-26] MEDS: MORPHINE SULFATE 2 MG/ML SYRINGE IVP PRN (15:30)
[2018-10-26 15:52] LABS: Poikilocytosis (M) Present; Polychromasia Present
[2018-10-26] MEDS: ACETAMINOPHEN TAB 325 MG TAB PO PRN (21:24)
[2018-10-27] MEDS: methylPREDNISolone SOD SUCCI 40 MG/ML 1 ML VIAL IV SCH ×2 (00:36→07:05)
[2018-10-27] MEDS: metroNIDAZOLE-NS PMX 500 MG in SALINE 1 100ML.BAG IVPB SCH ×2 (00:37→07:03)
[2018-10-27] MEDS: LEVOFLOXACIN 500MG-D5W PMX 500 MG in DEXTROSE/WATER 1 100ML.BAG IVPB SCH (01:21)
[2018-10-27] MEDS: SODIUM CHLORIDE 0.9% 1,000 ML IV SCH ×2 (06:10→11:24)
[2018-10-27] MEDS: PANTOPRAZOLE 40 MG/10 ML VIAL IVP SCH (07:05)
[2018-10-27 08:01] LABS: Anisocytosis Moderate; HCT 24.7 % (34.0-46.0); HGB 7.1 gm/dL (11.4-16.0); Hypochromasia Marked; MCHC 28.9 g/dL (31.0-37.0); MCV 79.7 fL (80.0-100.0); Mean Platelet Volume 6.8; Microcytosis Slight; Platelet Count 650 k/uL (150-450); Poikilocytosis Moderate; RDW 20.4 % (11.5-15.5); WBC 10.8 k/uL (3.8-10.6)
[2018-10-27] MEDS: ACETAMINOPHEN TAB 325 MG TAB PO PRN (14:17)
[2018-10-27 14:41] VITALS: BP 119/76; PULSE 86; RESP 16; TEMP 98.5
--- NOTE | 2018-10-27 14:46 | P.DS ---
Providers Date of admission: 10/23/18 23:21 Attending physician: Pa Salazar Consults: 10/24/18 00:24 Consult Physician Routine Consulting Provider: Grover Sutherland Consult Reason/Comments: GI bleed Do you want consulting provider notified?: Yes, Notify in am Primary care physician: Stated None Pertinent Studies: Ms. Kay is a 32-year-old female with a past medical history of ulcerative colitis diagnosed 5 years ago on sulfasalazine coming in with a chief complaint of rectal bleeding and abdominal pain for the past 3 weeks. The patient was initially admitted to [facility] and transferred to [facility]. At the time of admission for patient was tachycardic and tachypneic with a fever. Patient was started on antibiotics and IV steroids. C. diff toxin has been negative. GI has evaluated the patient and suggested a tapering dose of steroids that she would be discharged home on. Patient follows up with Dr. Meyers and has a follow-up appointment. Today the patient is lying in bed appears to be no acute distress. She denies having any shortness of breath or chest pain. She denies having any blood in her stool. She certainly could to go home and said she would follow up with Dr. Meyers is her [employer]. Vital Signs - 24 hr 10/26/18 10/27/18 10/27/18 19:18 04:58 14:40 Temperature 97.5 F L 97.4 F L 98.5 F Pulse Rate [ 86 71 86 Pulse Oximetery ] Respiratory 14 12 16 Rate Blood Pressure 114/76 112/75 119/76 [Left Arm] O2 Sat by Pulse 97 98 97 Oximetry Patient is lying in the bed comfortably, no acute distress, awake alert and oriented. HEENT: Mild pallor CHEST EXAMINATION: Trachea is central. Symmetrical expansion. Lung small clear to auscultation and percussion. CARDIAC: Patient has tachycardia. ABDOMEN: Soft. Minimal tenderness right lower quadrant with deep palpation. Bowel sounds normal. No organomegaly. No abdominal bruits. Extremities: reveal no edema. No clubbing or cyanosis Neurologically awake, alert, oriented x3 with well-coordinated movements. No focal deficits noted Skin: No rash or skin lesions. Psychiatric: Coperative. Nonsuicidal Musculoskeletal: No joint swelling or deformity. Normal range of motion. DISCHARGE DIAGNOSIS Acute ulcerative colitis exacerbation Fever and tachycardia due to colitis. Improved now. Acute blood loss anemia Microcytic iron deficiency anemia PLAN: Patient is being discharged on tapering dose of steroids. To complete the antibiotic course of levofloxacin and Flagyl for 3 more days. She is advised to follow up with GI Dr. Meyers. Patient is being discharged home in a fair condition. Patient's hemoglobin has been low at 7.1, she is advised to seek medical attention if she has any bleeding in her stool. She is advised to continue taking her iron supplements. More than 30 minutes spent towards the discharge of the patient. Patient Condition at Discharge: Fair Plan - Discharge Summary Discharge Rx Participant: No New Discharge Prescriptions: New metroNIDAZOLE [Flagyl] 500 mg PO Q8HR 3 Days #9 tab Levofloxacin [Levaquin] 750 mg PO DAILY 3 Days #3 tab Continue sulfaSALAzine [Azulfidine] 1,000 mg PO TID Ferrous Sulfate [Iron (65 MG Elemental)] 325 mg PO DAILY Discontinued predniSONE 50 mg PO DAILY Discharge Medication List sulfaSALAzine [Azulfidine] 1,000 mg PO TID 10/09/18 [History] Ferrous Sulfate [Iron (65 MG Elemental)] 325 mg PO DAILY 10/17/18 [History] Levofloxacin [Levaquin] 750 mg PO DAILY 3 Days #3 tab 10/27/18 [Rx] metroNIDAZOLE [Flagyl] 500 mg PO Q8HR 3 Days #9 tab 10/27/18 [Rx] Follow up Appointment(s)/Referral(s): Grover Sutherland MD [STAFF PHYSICIAN] - 11/19/18 4:45 pm Patient Instructions/Handouts: Ulcerative Colitis (DC) Activity/Diet/Wound Care/Special Instructions: activity as tolerated low fiber diet as tolerated Discharge Disposition: HOME SELF-CARE
== END 2018-10-27 16:09 | disposition home or self-care (01) | DRG 386 ==
LOC: 4MS4W 23:21
PROVIDERS: ADMIT Internal Medicine; ATTEND Internal Medicine
DX: K51.911 Ulcerative colitis, unspecified with rectal bleeding (principal); D62 Acute posthemorrhagic anemia; Z79.52 Long term (current) use of systemic steroids; D50.9 Iron deficiency anemia, unspecified
CPT/HCPCS: 74177; 80048; 80074; 82542; 82657; 82728; 83540; 83550; 83605; 85025; 85027; 86140; 86480; 87040; 87324